=== PATIENT | male | born 1950 | race Caucasian/White ===

== ENCOUNTER 2023-03-10 12:42 | Outpatient (CLI) | payer MEDICARE, OTHER, SELFPAY ==
--- NOTE | ~2023-03-10 | US_ITS ---
EXAMINATION: US thyroid DATE: 03/10/2023 13:35 INDICATION: Goiter TECHNIQUE: Multiple ultrasound images of the thyroid were obtained. COMPARISON: None. FINDINGS: The right thyroid lobe measures 2.0 x 3.8 x 2.2 cm. The left thyroid lobe measures 1.6 x 4.8 x 2.4 c m. There is heterogeneous echogenicity throughout the thyroid gland, which decreases sensitivity of detection of thyroid nodules. No discrete nodules identified. Normal vascular flow is present. IMPRESSION: Heterogeneous thyroid echogenicity, as can be seen with Jim's thyroiditis and Graves' disease. Reviewed, dictated and finalized at location K. 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
== END 2023-03-10 12:43 | disposition home or self-care (01) ==
PROVIDERS: PCP Physician Assistant; Visit Provider Internal Medicine
DX: E04.9 Nontoxic goiter, unspecified (principal); Z86.39 Personal history of other endocrine, nutritional and metabolic disease
CPT/HCPCS: 76536

== ENCOUNTER 2024-11-26 14:51 | Outpatient (CLI) | payer MEDICARE, OTHER, SELFPAY ==
--- NOTE | ~2024-11-26 | DEXA_ITS ---
Bone Density Report Name: DENILSON TAVERAS Age: 74 Sex: Male Ethnicity: White Date of : 1950 Indication: screening for osteoporosis; height loss; cancer; Referring Provider: CRESCENCIO LOPEZ Study: Bone densitometry was performed. Exam Date: November 26, 2024 Accession number: [id number] Bone Density: Region BMD T-score Z-score Classification AP Spine(L1-L4) 1.281 1.7 2.8 Normal Femoral Neck (Left) 0.830 -0.7 0.6 Normal Total Hip (Left) 1.066 0.2 1.0 Normal Femoral Neck (Right) 0.867 -0.5 0.9 Normal Total Hip (Right) 1.019 -0.1 0.7 Normal Total Hip Mean 1.042 0.1 0.9 Normal World Health Organization criteria for BMD impression classify patients as: Normal (T-score at or above -1.0), Osteopenia (T-score between -1.0 and -2.5), or Osteoporosis (T-score at or below -2.5). 10-year Fracture Risk: FRAX not reported because: All T-scores for Spine Total, Hip Total, Femoral Neck at or above -1.0 Clinical Information Provided by Patient: Has used the following medications: Vitamin D Has the following medical conditions: Cancer Patient maximum height was 76 No regular weight bearing exercise Drinks caffeinated beverages Impression: The patient has normal bone mass. Discussion: BONE DENSITY IS ABOVE THE MINIMUM DESIRABLE LEVEL AT ALL SKELETAL SITES TESTED. This patient?s bone mineral density is above the minimum desirable level (T-score -1.0 or better) at all sites measured. The patient should follow a healthful lifestyle (good nutrition with adequate calcium and vitamin D, and appropriate weight-bearing exercise). Follow-Up: Consider repeating this study in 5 years or sooner if there is some new clinical indication. Reported by: OPAL on 11/27/2024 2:55:00 PM. Reviewed, dictated and finalized at location A.
--- OUTSIDE RECORDS SUMMARY | 2024-11-26 18:44 | XMS_ITS | Encounter Summary ---
Author Organization 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 Historical Provider Final Res ult documented in this encounter Visit Diagnoses Not on filedocumented in this encounter Care Teams Manufacturing Engineer Machining Relationship Specialty Start Date End Date Uyen Mcnulty PA [address] [place] [address] PCP - General Internal Medicine 07/04/18 Ag Rouse MD [address] [place] [address] Consulting Physician Urology 07/29/18 documented as of this encounter
--- OUTSIDE RECORDS SUMMARY | 2024-11-26 18:44 | XMS_ITS | Encounter Summary ---
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 Name Role Phone Unavailable Primary Care Provider Unavailtayo e Encounter Details Date Type Department Care Team (Late st Contact Info) Description 11/07/2022 Lab Requisition [facility] - Derm[facility] Lab [address] [facility] [place] [id number] Constantine Dove MD [address] [address] Social History Tobacco Use Types Packs/Day Years Used Date Smoking Tobacco: Never Assessed Sex and Gender Information Value Date Recorded Sex Assigned at Not on file Legal Sex Male 3:44 PM CDT Gender Identity Not on file Sexual Orientation Not on file documented as of this encounter Plan of Treatment Not on file documented as of this encounter Procedures Procedure Name Priority Date/Time Associated Diagnosis Comments DERMATOPATHOLOGY Routine 11/07/2022 12:0 0 AM CDT documented in this encounter Results * DERMATOPATHOLOGY (11/07/2022 12:00 AM CDT) Case Report Dermatopathology Report Case: [id number] Authorizing Provider: Constantine Dove MD Collected: 11/07/2022 12:00 AM Ordering Location: [facility] Received: 11/07/2022 04:45 PM Pathologist: Charu Morgan MD Specimen: Skin, left volar forearm 1:06 PM CDT DERMATOPATHOLOGY LABORATORY Final Diagnosis Specimen A. 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 The specimen consists of a shave biopsy measuring 9x7x1 mm. Jar 0. 1:06 PM CDT DERMATOPATHOLOGY LABORATORY Microscopic Description Specimen A. SKIN, left volar forearm: The epidermis shows parakeratosis, full thickness disorderly maturation of keratinocytes, mitoses at different levels, and dyskeratotic cells. 1:06 PM CDT DERMATOPATHOLOGY LABORATORY Disclaimer An external and internal positive and negative controls are appropriate for the histochemical, immunohistochemical and immunofluorescence stain(s) in this case (if any), except where stated explicitly. The performance characteristics of the stain(s) cited in this report were developed and its performance characteristic determined by the Dermatopathology Laboratory at [facility], directed by Dr. Cristian Santiago. These tests need not be, and therefore are not, approved by the [place] Food and Drug Administration. The tests are used for clinical purposes. Billing Codes Specimen Charges Stain Charges 35686 1 1:06 PM CDT DERMATOPATHOLOGY LABORATORY Embedded Images 1:06 PM CDT DERMATOPATHOLOGY LABORATORY Pathology/Cytolog y TISSUE SPECIMEN FROM SKIN / Unknown 11/07/2022 11/07/2022 4:45 PM CDT us Constantine Dove MD LAB - PATHOLOGY/CYTOLOGY ORDER NIK Final Result DERMATOPATHOLOGY LABORATORY [facility] - Department of Dermatology [address], [address] [phone] documented in this encounter Visit Diagnoses Not on filedocumented in this encounter
--- OUTSIDE RECORDS SUMMARY | 2024-11-26 18:44 | XMS_ITS | Clinical Summary ---
Author Organization [place] [id number] [facility] Address [address] [place] [address] Care Team Providers Care Demurrage Man Name Role Phone Uyen Mcnulty Primary Care Provider [phone] Ag Rouse MD Unavailable [phone] Allergies No known active allergies Medications metoprolol XL (TOPROL-XL) 25 mg 24 hr tablet 9 Active PRADAXA 150 mg capsule 9 Active ascorbic acid (VITAMIN C) 500 mg tablet,chewable Vitamin C 1 tab, OD, 1000 u Active cholecalciferol (VITAMIN D-3) 5,000 unit tablet 1 tablet (5,000 Units total) daily Active Multaq 400 mg tablet Take 2 tablets (800 mg total) by mouth daily 1 Active methIMAzole (TAPAZOLE) 5 mg tablet Take 0.5 tablets (2.5 mg total) by mouth daily 2 Active clotrimazole 1 % cream Apply topically 2 (two) times a day 45 g 1 4 Active triamcinolone (KENALOG) 0.1 % creamIndications:T inea cruris Apply to affected area 1-2 times daily as needed. 45 g 1 4 Active furosemide (LASIX) 20 mg tablet TAKE 1 TABLET DAILY 90 tablet 3 4 Active vibegron 75 mg tablet Take by mouth Active rosuvastatin (CRESTOR) 10 mg tabletIndications: Mixed hyperlipidemia TAKE 1 TABLET DAILY 90 tablet 3 5 Active Active Problems Problem Noted Date Diagnosed Date JOHNNY (obstructive sleep apnea) 10/03/2024 Benign prostatic hyperplasia with urinary freque ncy 10/03/2024 BMI 35.0-35.9,adult 09/26/2024 Assessment & Plan (09/26/2024 11:02 AM CDT): Discussed the patient's BMI. The BMI is above average. BMI management plan is completed. BMI Follow-up includes: nutrition counseling, exercise counseling and education provided. Obesity (BMI 30-39.9) 09/26/2024 Assessment & Plan (09/26/2024 11:02 AM CDT): Discussed the patient's BMI. The BMI is above average. BMI management plan is completed. BMI Follow-up includes: nutrition counseling, exercise counseling and education provided. Tinea cruris 02/20/2022 Assessment & Plan (03/27/2023 2:27 PM MULTIPLE DRILL OPERATOR): Continue Lamisil prn Assessment & Plan (02/20/2022 6:34 PM MULTIPLE DRILL OPERATOR): Rash is consistent with tinea. Encouraged to keep the area clean and dry. May apply Lotrimin to the area as needed. This will help it resolve and then may use the nystatin powder to keep the area dry. If he has persistent symptoms he is to follow-up for further evaluation. Hyperthyroidism 02/27/2021 Assessment & Plan (03/30/2024 9:24 PM MULTIPLE DRILL OPERATOR): Patient follows with Dr. Flaherty at [facility] with his hyperthyroidism. Continue methimazole 2.5 mg daily. He continues to monitor with ultrasounds annually Recommend checking DEXA based on his diagnosis of hyperthyroidism. Order provided Assessment & Plan (10/01/2023 12:53 AM CDT): Managed by [facility] endocrinology Dr. Flaherty He manages the methimazole at 2.5 mg Assessment & Plan (03/27/2023 2:26 PM MULTIPLE DRILL OPERATOR): Continue per endocrinology doctor in a dull [facility]. He decreased his methimazole to 2.5 mg and is continuing to follow labs. Ultrasound of the thyroid is pending Assessment & Plan (08/26/2022 3:56 PM CDT): Continue per Dr. Hogan. Continue methimazole 5 mg Assessment & Plan (02/20/2022 6:32 PM MULTIPLE DRILL OPERATOR): Hyperthyroid is managed by Dr. Hogan. He is currently on methimazole. She manages the dose Assessment & Plan (09/05/2021 8:51 PM CDT): Patient has hyper thyroidism. Continue per Dr. Hogan. Continue methimazole Assessment & Plan (02/27/2021 11:26 AM MULTIPLE DRILL OPERATOR): Patient continues has a suppressed TSH. Initially suspected it was secondary to amiodarone. However, on the TSH has remained suppressed. Will refer to endocrinology for further evaluation and management. He is currently on Maltaq. Tolerating well. Continue per Cardiology. Edema of left lower leg 12/10/2020 Assessment & Plan (12/10/2020 6:37 PM CDT): He will cut back on salt in diet He has not been taking his lasix - he will take 20mg of lasix daily x 5 days Will arrange for stat venous doppler of lle - he declines for it to be done today and wants to wait for son tomorrow Varicose veins of left lower extremity Assessment & Plan (12/10/2020 6:37 PM CDT): We discussed venous doppler of LLE. If negative, will advise compression socks. Hyperglycemia 02/23/2020 Assessment & Plan (03/30/2024 9:21 PM MULTIPLE DRILL OPERATOR): Pre-diabetes/hyperglycemia is a precursor to Dm. Stressed importance of working on diet (decrease your simple sugars and one carbohydrate with each meal) and increase you exercise to achieve weight loss and this will help prevent you from progressing to diabetes. Assessment & Plan (10/01/2023 12:59 AM CDT): Pre-diabetes/hyperglycemia is a precursor to Dm. Stressed importance of working on diet (decrease your simple sugars and one carbohydrate with each meal) and increase you exercise to achieve weight loss and this will help prevent you from progressing to diabetes. Assessment & Plan (09/05/2021 8:50 PM CDT): Pre-diabetes/hyperglycemia is a precursor to Dm. Stressed importance of working on diet (decrease your simple sugars and one carbohydrate with each meal) and increase you exercise to achieve weight loss and this will help prevent you from progressing to diabetes. Assessment & Plan (02/27/2021 11:24 AM MULTIPLE DRILL OPERATOR): Stressed importance of continued A1c control to minimize the intermediate manager effects of diabetes. Bring accuchecks to office when instructed to do so. Check A1c about every 3-6 months. Take medication as prescribed. Get annual eye exam. Encouraged ADRIANA/Statin if able to tolerate. Encouraged weight control and encouraged diabetic diet and exercise. Assessment & Plan (02/23/2020 6:27 PM MULTIPLE DRILL OPERATOR): Pre-diabetes/hyperglycemia is a precursor to Dm. Stressed importance of working on diet (decrease your simple sugars and one carbohydrate with each meal) and increase you exercise to achieve weight loss and this will help prevent you from progressing to diabetes. Essential hypertension 02/28/2018 Assessment & Plan (03/30/2024 9:21 PM MULTIPLE DRILL OPERATOR): Bp is stable/in acceptable range for any co-morbidities. Encouraged to limit sodium intake and exercise for weight control. Continue metoprolol XL 25 Lasix Assessment & Plan (10/01/2023 12:52 AM CDT): Bp is stable/in acceptable range for any co-morbidities. Encouraged to limit sodium intake and exercise for weight control. Managed by cardiology. Continue metoprolol Lasix and encouraged to take the Lasix daily Assessment & Plan (03/27/2023 2:26 PM MULTIPLE DRILL OPERATOR): Bp is stable/in acceptable range for any co-morbidities. Encouraged to limit sodium intake and exercise for weight control. Continue per Dr. Paz Cardiology. He manages his AFib and hypertension. Continue Multaq metoprolol Lasix and Pradaxa. Echo was done on 03/06 but I am unable to see these results. Patient states he was told if he did not hear they were fine but strongly encouraged him to call back and confirm that these are all okay. Assessment & Plan (08/26/2022 3:57 PM CDT): Bp is stable/in acceptable range for any co-morbidities. Encouraged to limit sodium intake and exercise for weight control. Continue per cardio Dr. Menchaca Continue metoprolol XL 25, Lasix 20 He is on Multaq Pradaxa and aspirin for his AFib Assessment & Plan (09/05/2021 8:50 PM CDT): Bp is stable/in acceptable range for any co-morbidities. Encouraged to limit sodium intake and exercise for weight control. Assessment & Plan (02/27/2021 11:24 AM MULTIPLE DRILL OPERATOR): Bp is stable/in acceptable range for any co-morbidities. Encouraged to limit sodium intake and exercise for weight control. Continue current regimen Cataract 02/27/2018 Family history of cardiac disorder 02/27/2018 Hypertrophic condition of skin 02/27/2018 Mitral valve regurgitation 02/27/2018 Rheumatic tricuspid valve regurgitation 02/27/19 19 Prostate cancer ([facility]) 11/10/2017 Overview (12/09/2020): Prostatectomy By Dr. Grove Managed by Dr. Rouse 09/2017. Dr. Rouse. s/p prostatectomy by Dr. Garza 12/2017 Assessment & Plan (03/30/2024 9:21 PM MULTIPLE DRILL OPERATOR): Status post prostatectomy by Dr. Galicia. Continues to follow very closely for monitoring. Assessment & Plan (08/26/2020 11:25 PM CDT): Ongoing close surveilance Continue per Dr. Garza and Padma Assessment & Plan (02/23/2020 6:26 PM MULTIPLE DRILL OPERATOR): Continue per Dr. Rouse. Close surveillance for the next few years. Assessment & Plan (08/14/2019 10:44 PM CDT): Close monitoring by Dr. Garza Assessment & Plan (01/19/2019 12:33 PM MULTIPLE DRILL OPERATOR): Continue per ONC and urology. Still under close observation/followup. Assessment & Plan (07/29/2018 10:01 PM CDT): Continue with Dr. Rouse Primary osteoarthritis involving multiple joints 01/23/2017 Assessment & Plan (02/23/2020 6:26 PM MULTIPLE DRILL OPERATOR): Continue tylenol prn Assessment & Plan (08/14/2019 3:23 PM CDT): NSAIDs otc prn Onychomycosis 07/11/2016 Paroxysmal atrial fibrillation 07/27/2015 Assessment & Plan (03/30/2024 9:20 PM MULTIPLE DRILL OPERATOR): Afib - Dr. thomson Multaq, metroprololXL 25, Lasix 20 and Pradaxa Not taking Lasix daily -- notes some swelling in the LE and sock lines. ECHO -- 03/06 in his office Assessment & Plan (10/01/2023 12:52 AM CDT): Managed by cardiology Dr. Bernal On Multaq and metoprolol Lasix and Pradaxa. Encouraged to take the Lasix daily as currently he is not he will alternate with edema that comes and goes Assessment & Plan (03/27/2023 2:26 PM MULTIPLE DRILL OPERATOR): Managed by Cardiology. He is on Multaq metoprolol and Pradaxa Assessment & Plan (08/26/2022 3:58 PM CDT): Bp is stable/in acceptable range for any co-morbidities. Encouraged to limit sodium intake and exercise for weight control. Continue per cardio Dr. Menchaca Continue metoprolol XL 25, Lasix 20 He is on Multaq Pradaxa and aspirin for his AFib Assessment & Plan (02/20/2022 6:31 PM MULTIPLE DRILL OPERATOR): Continue per Dr. Hall Patient is on metoprolol and Pradaxa Assessment & Plan (09/05/2021 8:50 PM CDT): Continue per Cardiology. Currently on Multaq metoprolol Lasix and Pradaxa Assessment & Plan (08/26/2020 11:21 PM CDT): Continue per cardio Assessment & Plan (02/23/2020 6:26 PM MULTIPLE DRILL OPERATOR): Continue per Cardio Assessment & Plan (08/14/2019 3:23 PM CDT): Continue per cardio Assessment & Plan (01/19/2019 12:32 PM MULTIPLE DRILL OPERATOR): Continue per cardio Assessment & Plan (07/29/2018 10:00 PM CDT): Stable. Continue with Cardio. On Pradaxa, Proafenone and metoprolol Mixed hyperlipidemia 07/27/2015 Assessment & Plan (03/30/2024 9:20 PM MULTIPLE DRILL OPERATOR): Encouraged patient to follow low fat/low chol diet like the Mediterranean diet. Increase good fats in the diet. Increase exercise. Monitor labs as needed. Continue Crestor 10 Assessment & Plan (10/01/2023 12:53 AM CDT): Encouraged patient to follow low fat/low chol diet like the Mediterranean diet. Increase good fats in the diet. Increase exercise. Monitor labs as needed. Continue Crestor 10 Assessment & Plan (03/27/2023 2:26 PM MULTIPLE DRILL OPERATOR): Encouraged patient to follow low fat/low chol diet like the Mediterranean diet. Increase good fats in the diet. Increase exercise. Monitor labs as needed. Continue Crestor 10 Assessment & Plan (08/26/2022 3:57 PM CDT): Encouraged patient to follow low fat/low chol diet like the Mediterranean diet. Increase good fats in the diet. Increase exercise. Monitor labs as needed. Continue Crestor Assessment & Plan (02/20/2022 6:32 PM MULTIPLE DRILL OPERATOR): Encouraged patient to follow low fat/low chol diet like the Mediterranean diet. Increase good fats in the diet. Increase exercise. Monitor labs as needed. Continue Crestor Assessment & Plan (09/05/2021 8:50 PM CDT): Encouraged patient to follow low fat/low chol diet like the Mediterranean diet. Increase good fats in the diet. Increase exercise. Monitor labs as needed. Continue Crestor Assessment & Plan (02/27/2021 11:24 AM MULTIPLE DRILL OPERATOR): Encouraged patient to follow fat/low chol diet like the Mediterranean diet. Increase good fats in the diet. Increase exercise. Monitor labs as needed. Continue Crestor Assessment & Plan (08/26/2020 11:24 PM CDT): Encouraged patient to follow fat/low chol diet like the Mediterranean diet. Increase good fats in the diet. Increase exercise. Monitor labs as needed. Continue statin Assessment & Plan (02/23/2020 6:26 PM MULTIPLE DRILL OPERATOR): Encouraged patient to follow fat/low chol diet like the Mediterranean diet. Increase good fats in the diet. Increase exercise. Monitor labs as needed. Continue statin Assessment & Plan (08/14/2019 3:24 PM CDT): Encouraged patient to continue low fat/low chol diet. Continue exercise. Increase good fats in the diet. Monitor labs as needed. Continue statin Assessment & Plan (01/19/2019 12:50 PM MULTIPLE DRILL OPERATOR): Continue statin Encouraged patient to continue low fat/low chol diet. Continue exercise. Increase good fats in the diet. Monitor labs as needed. Pt has noted some muscle aches and has read about statins. Discussed changing statin vs starting CoQ10 vs both. Will try both. Assessment & Plan (07/29/2018 10:01 PM CDT): Encouraged patient to continue low fat/low chol diet. Continue exercise. Increase good fats in the diet. Monitor labs as needed. LDL is still elevated with the Lipitor. Will monitor, may need to increase Resolved Problems Problem Noted Date Diagnosed Date Resolved Date Need for vaccination for Strep pneumoniae 03/30/2024 10/03/2024 Colon cancer screening 10/01/202303/30 Assessment & Plan (10/01/2023 1:01 AM CDT): Will consider. Last 1 was done in 2013. If he decides he wants it scheduled to be glad to set it Morbid obesity 08/26/2022 10/03/2024 Assessment & Plan (03/30/2024 9:22 PM MULTIPLE DRILL OPERATOR): Discussed the patient's BMI. The BMI is above average. BMI management plan is completed. BMI Follow-up includes: nutrition counseling, exercise counseling and education provided. Patient has an obesity-related condition (not limited to: hypertension, obstructive sleep apnea, osteoarthritis, hyperlipidemia, diabetes, etc.). Therefore, morbid obesity may be documented for patients with a BMI between 35.00-39.99. Assessment & Plan (10/01/2023 1:00 AM CDT): Discussed the patient's BMI. The BMI is above average. BMI management plan is completed. BMI Follow-up includes: nutrition counseling, exercise counseling and education provided. Patient has an obesity-related condition (not limited to: hypertension, obstructive sleep apnea, osteoarthritis, hyperlipidemia, diabetes, etc.). Therefore, morbid obesity may be documented for patients with a BMI between 35.00-39.99. Assessment & Plan (08/26/2022 3:58 PM CDT): Discussed the patient's BMI. The BMI is above average. BMI management plan is completed. BMI Follow-up includes: nutrition counseling, exercise counseling and education provided. Patient has an obesity-related condition (not limited to: hypertension, obstructive sleep apnea, osteoarthritis, hyperlipidemia, diabetes, etc.). Therefore, morbid obesity may be documented for patients with a BMI between 35.00-39.99. BMI 35.0-35.9,adult 08/26/2022 03/27/19 24 Assessment & Plan (08/26/2022 10:42 AM CDT): Discussed the patient's BMI. The BMI is above average. BMI management plan is completed. BMI Follow-up includes: nutrition counseling, exercise counseling and education provided. Numbness and tingling 08/26/20222023 Assessment & Plan (08/26/2022 4:00 PM CDT): Patient is noticing a little bit of numbness and tingling in the tips of his toes. Monofilamen has decreased sensation on the plantar side but top of the foot is still normal. Reviewed safety measures with numbness in to make sure he is wearing shoes. Will continue monitor closely. Check labs for metabolic reasons for the neuropathy. If symptoms persist can consider spinal reasons versus other etiology. Obesity (BMI 30-39.9) 08/27/20212022 Assessment & Plan (02/20/2022 6:32 PM MULTIPLE DRILL OPERATOR): Discussed the patient's BMI. The BMI is above average. BMI management plan is completed. BMI Follow-up includes: nutrition counseling, exercise counseling and education provided. Assessment & Plan (09/05/2021 8:52 PM CDT): Obesity is unchanged. Discussed the patient's BMI. The BMI is above average. BMI management plan is completed. BMI Follow-up includes: nutrition counseling, exercise counseling and education provided. Patient has an obesity-related condition (not limited to: hypertension, obstructive sleep apnea, osteoarthritis, hyperlipidemia, diabetes, etc.). Therefore, morbid obesity may be documented for patients with a BMI between 35.00-39.99. BMI 33.0-33.9,adult 08/27/2021 08/27/19 23 Assessment & Plan (02/20/2022 6:32 PM MULTIPLE DRILL OPERATOR): Discussed the patient's BMI. The BMI is above average. BMI management plan is completed. BMI Follow-up includes: nutrition counseling, exercise counseling and education provided. Assessment & Plan (08/27/2021 10:11 AM CDT): Obesity is unchanged. Discussed the patient's BMI. The BMI is above average. BMI management plan is completed. BMI Follow-up includes: nutrition counseling, exercise counseling and education provided. Other specified disorders of thyroid 02/27/2021 10/01/2023 Fatigue 02/27/2021 10/03/2024 Assessment & Plan (10/01/2023 12:59 AM CDT): Probably multifactorial. Check labs and followup to re-evaluate Assessment & Plan (08/26/2022 3:58 PM CDT): Probably multifactorial. Check labs and followup to re-evaluate Assessment & Plan (02/27/2021 11:26 AM MULTIPLE DRILL OPERATOR): Probably multifactorial. Check labs and followup to re-evaluate Leg cramps 02/27/2021 10/01/2023 Assessment & Plan (02/27/2021 11:27 AM MULTIPLE DRILL OPERATOR): Patient is noticing some leg cramps. Will check electrolytes magnesium and monitor closely Obesity (BMI 30-39.9) 02/26/20212021 Assessment & Plan (02/26/2021 9:16 AM MULTIPLE DRILL OPERATOR): Obesity is unchanged. Discussed the patient's BMI. The BMI is above average. BMI management plan is completed. BMI Follow-up includes: nutrition counseling, exercise counseling and education provided. BMI 34.0-34.9,adult 02/26/2021 08/28/19 Assessment & Plan (02/26/2021 9:17 AM MULTIPLE DRILL OPERATOR): Obesity is unchanged. Discussed the patient's BMI. The BMI is above average. BMI management plan is completed. BMI Follow-up includes: nutrition counseling, exercise counseling and education provided. BMI 36.0-36.9,adult 12/10/2020 10/04/19 Assessment & Plan (03/30/2024 9:22 PM MULTIPLE DRILL OPERATOR): Discussed the patient's BMI. The BMI is above average. BMI management plan is completed. BMI Follow-up includes: nutrition counseling, exercise counseling and education provided. Assessment & Plan (12/10/2020 6:37 PM CDT): Encouraged heart healthy diet, cutting back on salt in snacks Medicare annual wellness visit, subsequent 08/26/2020 03/30/2024 Assessment & Plan (10/01/2023 12:53 AM CDT): Encouraged healthy lifestyle, good nutrition and exercise. Encouraged Calcium and Vitamin D and weight bearing exercise for bone health. Reviewed immunizations. Reviewed age appropirate screenings. Medicare Wellness Documentation is completed within the chart Assessment & Plan (08/26/2022 3:56 PM CDT): Encouraged healthy lifestyle, good nutrition and exercise. Encouraged Calcium and Vitamin D and weight bearing exercise for bone health. Reviewed immunizations. Reviewed age appropirate screenings. Medicare Wellness Documentation is completed within the chart Assessment & Plan (09/05/2021 8:50 PM CDT): Encouraged healthy lifestyle, good nutrition and exercise. Encouraged Calcium and Vitamin D and weight bearing exercise for bone health. Reviewed immunizations. Reviewed age appropirate screenings. Medicare Wellness Documentation is completed within the chart Assessment & Plan (08/26/2020 11:26 PM CDT): Encouraged healthy lifestyle, good nutrition and exercise. Encouraged Calcium and Vitamin D and weight bearing exercise for bone health. Reviewed immunizations. Reviewed age appropirate screenings. Medicare Wellness Documentation is completed within the chart Abnormal TSH 08/26/2020 10/01/2023 Overview (09/17/2020): 08/2019 - Normal US - suppressed TSH. Probably secondary to amiodarone. Cardio instructed to hold and he will manage/change Assessment & Plan (08/26/2020 11:27 PM CDT): This is a significant, separately identifiable problem that was evaluated and managed on the same day as the wellness exam TSH is suppressed. It never has been abnormal. Thyroid exam is normal Will recheck labs TSH, T3 and FT4. If normal, will monitor. If abnormal, may start with US vs referral to endo TSH elevation 08/26/2020 08/26/2020 Other fatigue 02/23/2020 10/01/2023 Assessment & Plan (10/01/2023 12:59 AM CDT): Probably multifactorial. Check labs and followup to re-evaluate Assessment & Plan (08/26/2020 11:26 PM CDT): Probably multifactorial. Check labs and followup to re-evaluate Assessment & Plan (02/23/2020 6:27 PM MULTIPLE DRILL OPERATOR): Probably multifactorial. Check labs and followup to re-evaluate BMI 34.0-34.9,adult 02/21/2020 08/21/19 Assessment & Plan (02/21/2020 9:05 AM MULTIPLE DRILL OPERATOR): Obesity is unchanged. Discussed the patient's BMI. The BMI is above average. BMI management plan is completed. BMI Follow-up includes: nutrition counseling, exercise counseling and education provided. BMI 35.0-35.9,adult 02/21/2020 03/30/19 Assessment & Plan (03/22/2024 10:18 AM MULTIPLE DRILL OPERATOR): Discussed the patient's BMI. The BMI is above average. BMI management plan is completed. BMI Follow-up includes: nutrition counseling, exercise counseling and education provided. Assessment & Plan (10/01/2023 12:53 AM CDT): Discussed the patient's BMI. The BMI is above average. BMI management plan is completed. BMI Follow-up includes: nutrition counseling, exercise counseling and education provided. Assessment & Plan (08/20/2020 10:43 AM CDT): Obesity is unchanged. Discussed the patient's BMI. The BMI is above average. BMI management plan is completed. BMI Follow-up includes: nutrition counseling, exercise counseling and education provided. Assessment & Plan (02/21/2020 9:05 AM MULTIPLE DRILL OPERATOR): Obesity is unchanged. Discussed the patient's BMI. The BMI is above average. BMI management plan is completed. BMI Follow-up includes: nutrition counseling, exercise counseling and education provided. Medicare annual wellness visit, subsequent 08/14/2019 02/15/2020 Assessment & Plan (08/14/2019 3:26 PM CDT): Encouraged healthy lifestyle, good nutrition and exercise. Encouraged Calcium and Vitamin D and weight bearing exercise for bone health. Reviewed immunizations. Reviewed age appropirate screenings. Medicare Wellness Documentation is completed within the chart Influenza vaccine refused 01/19/2019 Assessment & Plan (02/23/2020 6:27 PM MULTIPLE DRILL OPERATOR): Encouraged vaccine. Reviewed risks/ benefits. Patient refuses and accepts risks. Assessment & Plan (01/19/2019 12:41 PM MULTIPLE DRILL OPERATOR): Out of supply--- Will consider at pharmacy Ankle edema 08/29/2018 10/01/2023 Medicare annual wellness visit, subsequent 07/29/2018 01/19/2019 Assessment & Plan (07/29/2018 10:01 PM CDT): Encouraged healthy lifestyle, good nutrition and exercise. Encouraged Calcium and Vitamin D and weight bearing exercise for bone health. Reviewed immunizations Reviewed age appropirate screenings. BMI 34.0-34.9,adult 07/29/2018 10/01/19 Assessment & Plan (03/27/2023 2:27 PM MULTIPLE DRILL OPERATOR): Discussed the patient's BMI. The BMI is above average. BMI management plan is completed. BMI Follow-up includes: nutrition counseling, exercise counseling and education provided. Assessment & Plan (08/14/2019 3:56 PM CDT): Obesity is unchanged. Discussed the patient's BMI. The BMI is above average. BMI management plan is completed. BMI Follow-up includes: nutrition counseling, exercise counseling and education provided. Assessment & Plan (01/19/2019 12:38 PM MULTIPLE DRILL OPERATOR): Obesity is unchanged. Discussed the patient's BMI. The BMI is above average. BMI management plan is completed. BMI Follow-up includes: nutrition counseling, exercise counseling and education provided. Obesity (BMI 30-39.9) 07/29/20182023 Assessment & Plan (03/27/2023 2:27 PM MULTIPLE DRILL OPERATOR): Discussed the patient's BMI. The BMI is above average. BMI management plan is completed. BMI Follow-up includes: nutrition counseling, exercise counseling and education provided. Assessment & Plan (12/10/2020 1:22 PM CDT): Obesity is unchanged. Discussed the patient's BMI. The BMI is above average. BMI management plan is completed. BMI Follow-up includes: nutrition counseling, exercise counseling and education provided. Assessment & Plan (08/20/2020 10:43 AM CDT): Obesity is unchanged. Discussed the patient's BMI. The BMI is above average. BMI management plan is completed. BMI Follow-up includes: nutrition counseling, exercise counseling and education provided. Assessment & Plan (08/14/2019 3:56 PM CDT): Obesity is unchanged. Discussed the patient's BMI. The BMI is above average. BMI management plan is completed. BMI Follow-up includes: nutrition counseling, exercise counseling and education provided. Assessment & Plan (01/19/2019 12:33 PM MULTIPLE DRILL OPERATOR): Obesity is unchanged. Discussed the patient's BMI. The BMI is above average. BMI management plan is completed. BMI Follow-up includes: nutrition counseling, exercise counseling and education provided. Tinnitus of both ears 07/12/20182023 Low back pain 03/04/2018 10/03/2024 Cardiomegaly 02/27/2018 10/01/2023 Tinea corporis 02/27/2018 10/01/2023 Encounters Date Type Department Care Team Description 09/26/2024 11:00 AM CDT Office Visit [facility] [address] [address] Uyen Mcnulty PA Medicare annual wellness visit, subsequent (Primary Dx); Paroxysmal atrial fibrillation (HCC); BMI 35.0-35.9,adult; Obesity (BMI 30-39.9); Essential hypertension; Mixed hyperlipidemia; JOHNNY (obstructive sleep apnea); Benign prostatic hyperplasia with urinary frequency; Hyperthyroidism from Last 3 Months Immunizations Immunization Administration Dates Next Due Influenza, Unspecified 02/07/2024(Deferr ed: Patient Refused),02/06/2023(Deferred: Patient Refused),02/11/2022(Deferred: Patient Refused),03/09/2021(Deferred: Patient Refused),11/07/2019(Deferred: Patient Refused),11/06/2018(Deferred: Patient Refused),01/06/2018(Deferred: Patient Refused) Pneumococcal Conjugate PCV 13 01/18/2016 Pneumococcal Conjugate Pcv20 03/22/2024 Pneumococcal Polysaccharide PPV23 01/23/2017 Surgical History Surgery Date Site/Laterality Comments PROSTATE SURGERY Family History Medical History Relation Name Comments Arthritis Father Arthritis Mother Relation Name Status Comments Father Mother Alive Social History Tobacco Use Types Packs/Day Years Used Date Smoking Tobacco: Never Passive Smoke Exposure: Never Smokeless Tobacco: Never Tobacco Cessation:Counseling Given: Not Answered Alcohol Use Standard Drinks/Week Comments Yes 2 (1 standard drink = 0.6 oz pur e alcohol) Occasionally PHQ-2 Answer Date Recorded PHQ-2 Total Score (If total score is 3 or more points, staff should administer the PHQ-9) 0 09/26/2024 AUDIT-C Answer Date Recorded Q1: How often do you have a drink containing alc ohol? 2-3 times a week 09/26/2024 Q2: How many drinks containi ng alcohol do you have on a typical day when you are drinking? 1 or 2 09/26/2024 Q3: How often do you have si x or more drinks on one occasion? 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 OPERATOR Gender Identity Not on file Sexual Orientation Not on file Occupation Industry Job Start Date Job End Date Retired Not on file Not on file Not on file Obstetrics History Last Filed Vital Signs Vital Sign Reading Time Taken Comments Blood Pressure 120/80 09/26/2024 10:56 AM CDT Pulse 79 09/26/2024 10:56 AM CDT Temperature 37.1 C (98.7 F) 09/26/2024 10:56 AM CDT Respiratory Rate 19 12/10/2020 1:21 PM CDT Oxygen Saturation 97% 09/26/2024 10:56 AM CDT Inhaled Oxygen Concentration - - Weight 127 kg (280 lb) 09/26/2024 10:56 AM CDT Height 189.2 cm (6' 2.5) 09/26/2024 10:56 AM CD T Body Mass Index 35.47 09/26/2024 10:56 AM CDT Plan of Treatment Health Maintenance Due Date Last Done Comments Hepatitis C Screening 1950 DTaP/Tdap/Td Vaccine (1 - Tdap) 1960 Hepatitis B Screening 11/01/1967 Zoster Vaccine (1 of 2) 11/01/1999 Influenza Vaccine (#1) 2024 Depression Screening 09/26/2025 09/26/2024, 03/22/2024, 09/20/2023, Additional history exists Fall Risk Assessment 09/26/2025 09/26/2024, 03/22/2024, 09/20/2023, Additional history exists Well Visit 65+ 09/26/2025 09/26/2024, 09/06, 08/26/2022, Additional history exists Colon Cancer Screening-DNA Stool 09/24/2026 09/25/19 24, 09/11/2013 Colon Cancer Screening-CT Colonography Discontinued 09/11/2013 Colon Cancer Screening-Colonoscopy Discontinued 09/11/2013 Colon Cancer Screening-Sigmoidoscopy Discontinued 09/11/2013 Prostate Cancer Screening-PSA Discontinued 07/17/2017 Colon Cancer Screening-FIT Discontinued 09/25/2023, Pneumococcal vaccine 65+ Completed 025, 01/23/2017, 01/18/2016 Procedures Procedure Name Priority Date/Time Associated Diagnosis Comments STOOL DNA COLOGUARD Routine 09/25/2023 7:00 AM CDT Colon cancer screening PSA, TOTAL Routine 07/17/2017 10:58 AM CDT COLONOSCOPY Routine 09/11/2013 from Last 3 Months or Most Recently Relevant to Health Maintenance Results * Stool DNA - Cologuard (09/25/2023 7:00 AM CDT) Pathologist [facility] Stool DNA - Cologuard Negative Negative [employer] (CLIA #:[id number]) Comment: NEGATIVE TEST RESULT. A negative Cologuard result indicates a low likelihood that a colorectal cancer (CRC) or advanced adenoma (adenomatous polyps with more advanced pre-malignant features) is present. The chance that a person with a negative Cologuard test has a colorectal cancer is less than 1 in 1500 (negative predictive value >99.9%) or has an advanced adenoma is less than 5.3% (negative predictive value 94.7%). These data are based on a prospective cross-sectional study of 10,000 individuals at average risk for colorectal cancer who were screened with both Cologuard and colonoscopy. (Lilia T. et al, N Engl J Med 2014;370(14):9915-9646) The normal value (reference range) for this assay is negative. COLOGUARD RE-SCREENING RECOMMENDATION: Periodic colorectal cancer screening is an important part of preventive healthcare for asymptomatic individuals at average risk for colorectal cancer. Following a negative Cologuard result, the [place] [employer] Society and U.S. Multi-Society Task Force screening guidelines recommend a Cologuard re-screening interval of 3 years. References: [place] [employer] Guideline for Colorectal Cancer Screening: https://www.cancer.org/cancer/eimzk-bqueak-lvceft/zklwshvja-tfpctpoep-soerlfl/ac s-rec ommendations.html.; Joseph HELMS, Arina LAURA, Jacquie APPLE, Colorectal Cancer Screening: Recommendations for Physicians and Patients from the U.S. Multi-Society Task Force on Colorectal Cancer Screening , Am J Gastroenterology 2017; 112:1019-5476. TEST DESCRIPTION: Composite algorithmic analysis of stool DNA-biomarkers with hemoglobin immunoassay. Quantitative values of individual biomarkers are not reportable and are not associated with individual biomarker result reference ranges. Cologuard is intended for colorectal cancer screening of adults of either sex, 45 years or older, who are at average-risk for colorectal cancer (CRC). Cologuard has been approved for use by the U.S. FDA. The performance of Cologuard was established in a cross sectional study of average-risk adults aged 50-84. Cologuard performance in patients ages 45 to 49 years was estimated by sub-group analysis of near-age groups. Colonoscopies performed for a positive result may find as the most clinically significant lesion: colorectal cancer [4.0%], advanced adenoma (including sessile serrated polyps greater than or equal to 1cm diameter) [20%] or non- advanced adenoma [31%]; or no colorectal neoplasia [45%]. These estimates are derived from a prospective cross-sectional screening study of 10,000 individuals at average risk for colorectal cancer who were screened with both Cologuard and colonoscopy. (Lilia Head. et al, N Engl J Med 2014;370(14):3064-1098.) Cologuard may produce a false negative or false positive result (no colorectal cancer or precancerous polyp present at colonoscopy follow up). A negative Cologuard test result does not guarantee the absence of CRC or advanced adenoma (pre-cancer). The current Cologuard screening interval is every 3 years. ([place] [employer] and U.S. Multi-Society Task Force). Cologuard performance data in a 10,000 patient pivotal study using colonoscopy as the reference method can be accessed at the following location: www.[employer]/results. Additional description of the Cologuard test process, warnings and precautions can be found at www.[employer].com. Stool 09/25/2023 7:00 AM CDT 09/26/2023 1:33 PM CDT Uyen SNELL LAB BODY FLUIDS AND STOOLS ORDERABLES Final Result [employer] (CLIA #:[id number]) [place] [address] * (ABNORMAL) PSA, total (07/17/2017 10:58 AM CDT) PSA, TOTAL 4.2(H) < OR = 4.0 ng/mL [facility] HISTORICAL RESULTS Comment: The total PSA value from this assay system is standardized against the WHO standard. The test result will be approximately 20% lower when compared to the equimolar-standardized total PSA (Amy Marcus). Comparison of serial PSA results should be interpreted with this fact in mind. This test was performed using the Siemens chemiluminescent method. Values obtained from different assay methods cannot be used interchangeably. PSA levels, regardless of value, should not be interpreted as absolute evidence of the presence or absence of disease. 07/17/2017 10:5 8 AM CDT 07/18/2017 7:15 AM CDT Narrative [facility] HISTORICAL RESULTS - 07/18/2017 7:00 AM CDT 0; 0; 0 FASTING:YES FASTING: YES PERFORMING LAB: [facility], [facility] [address], [place] [address] Marek Neff D.O., MPH Historical Provider LAB BLOOD ORDERABLES Taniya l Result [facility] HISTORICAL RESULTS * Colonoscopy (09/11/2013) Anatomical Region Laterality Modality Other Narrative 09/11/2013 Dr. Ring. Normal ---->10 years Historical Provider ENDOSCOPY PROCEDURES Taniya l Result from Last 3 Months or Most Recently Relevant to Health Maintenance Insurance MEDICARE FOR LIFE MEDICARE FOR LIFE MEDICARE FOR LIFE Advance Directives For more information, please contact: [phone] Documents on File Type Date Recorded Patient Station Agent Expl anation ADVANCE DIRECTIVE 11/29/2017 12:00 AM [facility] MARRIAGE COUNSELOR FINANCIAL/MEDICAL Care Teams Demurrage Man Relationship Specialty Start Date End Date Uyen Mcnulty PA [address] [place] [address] PCP - General Internal Medicine 07/04/18 Ag Rouse MD [address] [place] [address] Consulting Physician Urology 07/29/18
--- OUTSIDE RECORDS SUMMARY | 2024-11-26 18:44 | XMS_ITS | Encounter Summary ---
Author Organization [facility] Address [address] [place] [address] Care Team Providers Care Customer Sales Representative Name Role Phone Unavailable Primary Care Provider Unavailabl e Encounter Details Date Type Department Care Team (Late st Contact Info) Description 01/19/2023 Lab Requisition [facility] - DermPath Lab [address], [facility] [place] [id number] Constantine Dove MD [address] [place] [place] [address] Social History Tobacco Use Types Packs/Day Years [...] Priority Date/Time Associated Diagnosis Comments DERMATOPATHOLOGY Routine 01/18/2023 12:0 0 AM HOURLY SHIFT MANAGER documented in this encounter Results * DERMATOPATHOLOGY (01/18/2023 12:00 AM HOURLY SHIFT MANAGER) Case Report Dermatopathology Report Case: [id number] Authorizing Provider: Constantine Dove MD Collected: 01/18/2023 12:00 AM Ordering Location: [facility] DermPath Lab Received: 01/20/2023 06:24 AM Pathologist: Janel Grider MD Specimen: Skin, left volar forearm 12:52 PM HOURLY SHIFT MANAGER DERMATOPATHOLOGY LABORATORY Final Diagnosis Specimen A. 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 Check Margin and Prior Biopsy Path# [id number] 3 12:52 PM [facility] DERMATOPATHOLOGY LABORATORY Gross Description Specimen A: Received is one formalin filled container labeled with the patient's name and designated left volar forearm. The specimen consists of a non-oriented ellipse of skin measuring 70l88w0 mm.The margin is inked green. The 12 o'clock and 6 o'clock tips are submitted in cassette 1. The remainder of the ellipse is serially sectioned and submitted in cassette 2 - 3. Jar 0. 3 12:52 PM [facility] DERMATOPATHOLOGY LABORATORY Microscopic Description Specimen A. SKIN, left volar forearm: The epidermis shows parakeratosis, full thickness disorderly maturation of keratinocytes, mitoses at different levels, and dyskeratotic cells. This lesion is not present at the margin of the specimen. There are fibroblasts and collagen bundles oriented parallel to the skin surface with elongated blood vessels, some of which are oriented perpendicular to the skin surface. 3 12:52 PM [facility] DERMATOPATHOLOGY LABORATORY Disclaimer An external and internal positive and negative controls are appropriate for the histochemical, immunohistochemical and immunofluorescence stain(s) in this case (if any), except where stated explicitly. The performance characteristics of the stain(s) cited in this report were developed and its performance characteristic determined by the Dermatopathology Laboratory at [facility], directed by Dr. Cristian Santiago. These tests need not be, and therefore are not, approved by the [place] Food and Drug Administration. The tests are used for clinical purposes. Billing Codes Specimen Charges Stain Charges 96093 1 3 12:52 PM [facility] DERMATOPATHOLOGY LABORATORY Embedded Images 3 12:52 PM [facility] DERMATOPATHOLOGY LABORATORY Pathology/Cytolog y TISSUE SPECIMEN FROM SKIN / Unknown 01/18/2023 01/20/2023 6:24 AM HOURLY SHIFT MANAGER us Constantine Dove MD LAB - PATHOLOGY/CYTOLOGY ORDER NIK Final Result DERMATOPATHOLOGY LABORATORY [facility] - Department of Dermatology [address] [phone] documented in this encounter Visit Diagnoses Not on filedocumented in this encounter
--- OUTSIDE RECORDS SUMMARY | 2024-11-26 18:44 | XMS_ITS | Encounter Summary ---
Author Organization [facility] Care Team Providers Care Labor Custodian Name Role Phone Uyen Mcnulty Primary Care Provider + [phone] Ag Rouse MD Unavailable [phone] Encounter Details Date Type Department Care Team (Latest Contact Info) Description 02/18/2016 Orders Only [facility] CLINCONV Provider, MD Misty [address] [place] [id number] Social History Tobacco Use Types Packs/Day Years Used Date Smoking Tobacco: Never Assessed Sex and Gender Information Value Date Recorded Sex Assigned at Not on file Legal Sex Male 11:45 AM SCREEN PRINTING INSPECTOR Gender Identity Not on file Sexual Orientation Not on file documented as of this encounter Plan of Treatment Not on file documented as of this encounter Procedures Procedure Name Priority Date/Time Associated Diagnosis Comments PROCEDURE - RESULT 02/18/2016 12 :00 AM SCREEN PRINTING INSPECTOR documented in this encounter Results * PROCEDURE - RESULT (02/18/2016 12:00 AM SCREEN PRINTING INSPECTOR) Narrative 02/18/2016 12:00 AM SCREEN PRINTING INSPECTOR Ordered by an unspecified provider. Historical Provider Final Res ult documented in this encounter Visit Diagnoses Not on filedocumented in this encounter Care Teams Labor Custodian Relationship Specialty Start Date End Date Uyen Mcnulty PA [address] [place] [address] PCP - General Internal Medicine 07/04/18 Ag Rouse MD [address] [place] [address] Consulting Physician Urology 07/29/18 documented as of this encounter
--- OUTSIDE RECORDS SUMMARY | 2024-11-26 18:44 | XMS_ITS | Encounter Summary ---
Author Organization [facility] Care Team Providers Care Lining Closer Name Role Phone Uyen Mcnulty Primary Care Provider + [phone] Ag Rouse MD Unavailable [phone] Encounter Details Date Type Department Care Team (Latest Contact Info) Description 09/11/2013 Orders Only [facility] CLINCONV Provider, MD Misty [address] [place] [address] Social History Tobacco Use Types Packs/Day Years Used Date Smoking Tobacco: Never Assessed Sex and Gender Information Value Date Recorded Sex Assigned at Not on file Legal Sex Male 11:45 AM DAM ATTENDANT Gender Identity Not on file Sexual Orientation Not on file documented as of this encounter Plan of Treatment Not on file documented as of this encounter Procedures Procedure Name Priority Date/Time Associated Diagnosis Comments COLONOSCOPY - SCAN 09/11/2013 12 :00 AM CDT documented in this encounter Results * COLONOSCOPY - SCAN (09/11/2013 12:00 AM CDT) Narrative 09/11/2013 12:00 AM CDT Ordered by an unspecified provider. Historical Provider Final Res ult documented in this encounter Visit Diagnoses Not on filedocumented in this encounter Care Teams Lining Closer Relationship Specialty Start Date End Date Uyen Mcnulty PA [address] [place] [address] PCP - General Internal Medicine 07/04/18 Ag Rouse MD [address] [place] [address] Consulting Physician Urology 07/29/18 documented as of this encounter
--- OUTSIDE RECORDS SUMMARY | 2024-11-26 18:44 | XMS_ITS | Clinical Summary ---
Author Organization [facility] Address [address] [place] [address] Care Team Providers Care Vision Therapist Name Role Phone Unavailable Primary Care Provider Unavailabl e Source Comments [facility],non-owned Affiliates and Associated Physician Practices is amultiple site organization consisting of ambulatory clinics and hospital sitesin [place], [place], [place] and [place]. This disclosure is being madepursuant to the Care Everywhere program and may not contain all information available regarding this patient. Last updated 17.[facility] Social History Tobacco Use Types Packs/Day Years Used Date Smoking Tobacco: Never Assessed Sex and Gender Information Value Date Recorded Sex Assigned at Not on file Legal Sex Male 3:44 PM CDT Gender Identity Not on file Sexual Orientation Not on file Plan of Treatment Health Maintenance Due Date Last Done Comments COLOGUARD (AGES 45-75) - COL ON CA SCREENING 1950 COLON MONITORING 1950 COLONOSCOPY - COLON CA SCREENING 1949 CT COLONOGRAPHY - COLON CA SCREENING 1950 Colorectal Cancer Screening 1950 FIT - COLON CA SCREENING 1949 FLEX SIG - COLON CA SCREENING 1949 LIPID TESTING 1950 MEDICARE AWV 12 MONTHS 1950 HEPATITIS C SCREENING 10/27/1967 DTAP/TDAP/TD VACCINES (1 - Tdap) 1968 PNEUMOCOCCAL VACCINE 50+ (1 of 1 - PCV) 11/01/1999 ZOSTER VACCINE (1 of 2) 11/01/1999 DEPRESSION SCREENING 02/07/2024 COVID-19 VACCINE (1 - 2023-2 5 season) 2024 INFLUENZA VACCINE (#1) 2024 Respiratory Syncytial Virus (RSV) Vaccine Pt: or over 60 yrs (1 - 1-dose 75+ series) 2024 HEPATITIS B VACCINE Aged Out No longe r eligible based on patient's age to complete this topic HIB VACCINE Aged Out No longer eligi ble based on patient's age to complete this topic HPV VACCINE Aged Out No longer eligi ble based on patient's age to complete this topic MENINGOCOCCAL (Group B) VACC INE SHARED DECISION-MAKING Aged Out No longer eligibl e based on patient's age to complete this topic MENINGOCOCCAL GROUPS A/C/Y/W VACCINE Aged Out No longer eligible b ased on patient's age to complete this topic Insurance MEDICARE [facility]
--- OUTSIDE RECORDS SUMMARY | 2024-11-26 18:44 | XMS_ITS | Clinical Summary ---
Author Organization [facility] Address [address] [place] [address] Care Team Providers Care Knowledge Analyst Name Role Phone Unavailable Primary Care Provider Unavailabl e Social History Tobacco Use Types Packs/Day Years Used Date Smoking Tobacco: Never Assessed Sex and Gender Information Value Date Recorded Sex Assigned at Not on file Legal Sex Male 8:08 PM CDT Gender Identity Not on file Sexual Orientation Not on file Plan of Treatment Health Maintenance Due Date Last Done Comments Colorectal Cancer Screening Colonoscopy (10 Years) 1950 Hepatitis C 11/01/1967 DTaP, Tdap and Td Vaccines ( 1 - Tdap) 1968 Pneumococcal Vaccine: 50+ Ye ars (1 of 1 - PCV) 11/01/1999 Zoster Vaccines (1 of 2) 11/01/1999 COVID-19 Vaccine (1 - 2023-2 5 season) 2024 RSV Immunization or 60+ Years (1 - 1-dose 75+ series) 2024 Influenza Adult (#1) 2024 Hepatitis A Vaccines Aged Out No long er eligible based on patient's age to complete this topic Meningococcal B Vaccine Aged Out No l onger eligible based on patient's age to complete this topic Meningococcal Vaccine Aged Out No kathy vinh eligible based on patient's age to complete this topic RSV Immunizations Under 20 Months Aged Out No longer eligible based on patient's age to complete this topic
--- OUTSIDE RECORDS SUMMARY | 2024-11-26 18:44 | XMS_ITS | Data Portability ---
Author Organization [place] - [facility] OFFICE Address [address] [place] [address] Care Team Providers Care Water Resources Technical Officer Name Role Phone CHARITY MCNULTY Primary Care Provider Assessment Encounter Date Assessment Date Assessment LastModified by Organization Details LastModified Time 01/16/2023 01/16/2023 Patient Examined by TALON Mayen, Also Documentation reviewed and approved by supervising physician brody Not available 01/16/2023 14:44:35 Plan of Treatment Reminders Order Date Submit Date Provider Last Modified By Organization Details Last Modified Time Details Appointments ESTABLISH ED PATIENT DETAILED 2024 02:15P M Owen Ayala i, MD Not available Not available Not available Lab None recorded. Referral None recorded. Procedures None recorded. Surgeries None recorded. Imaging None recorded. Medication Orders Pradaxa 150 mg capsule 2023 024 [employer] [facility], [address] [place] [address], [id number], 01/27/2024 12:35:46 Patient TargetsNo targets recorded. Patient Instructions Encounter Date Encounter Id Patient Instructions Last Modified By Organization Details Last Modified Time 06/08/2022 [id number] Weight loss 20 pounds Exercise advised Low cholesterol diet advised Low sodium diet advised. lisa Not available 06/08/2022 14:44:34 01/16/2023 [id number] Exercise advised Low cholesterol diet advised Low sodium diet advised. brody Not available 01/16/2023 14:50:33 01/27/2024 [id number] Weight loss 20 pounds Exercise advised Low cholesterol diet advised Low sodium diet advised. [email or web address] Not available 01/27/2024 12:35:42 Reason for Referral None Reported. Results Created Date Observation Date Name Description Value Unit Range Abnormal Flag Note LastModifiedBy Organization Detail LastModifiedTime 06/11/1905/14/2022 elect rocar diogr am No observ ation record ed. [email or web address] Not Available 2022 11:03:38 01/20/20 23 01/16/2023 elect rocar diogr am No observ ation record ed. [email or web address] Not Available 13:57:28 01/24/20 23 12/05/2022 US, carlos a x, hepat ic vein No observ ation record ed. [email or web address] Not Available 2022 11:54:43 02/06/20 23 02/03/2023 , echoc ardio gram No observ ation record ed. [facility] [address] [place], [place], [address], 02/08/2023 12:24:46 07/12/19 24 07/11/2023 elect rocar diogr am No observ ation record ed. [email or web address] Not Available 2023 13:57:15 01/29/20 24 01/27/2024 [facility] rocar diogr am No observ ation record ed. [email or web address] Not Available 2024 09:27:04 07/25/19 25 07/23/2024 elect rocar diogr am No observ ation record ed. [email or web address] Not Available 2024 13:16:44 09/06/19 25 08/20/2024 , echoc ardio gram No observ ation record ed. [email or web address] Not Available 2024 12:47:23 Result Notes None recorded. Problems Name Problem SNOMED Code Status Onset Date Resolution Date Notes Provider Name and Address Organization Details Recorded Time Tinea corporis 80429786 Active 2018 TIA Chávez [facility] 9 01:40:32 Obesity 823489708 Active 2018 TIA Chávez [facility] 9 01:40:40 Mixed hyperlipide mana 074108294 Completed 201802/28/2018 Coleen Acaciaalaina [place], [place] - [facility] 9 13:22:13 Rheumatic tricuspid valve regurgitati on 23659557 Active 2018 Coleen Olguin [place], [place] - [facility] 9 01:41:03 Mitral valve regurgitati on 82306871 Active 2018 Coleen [place], [place] - [facility] 9 01:41:16 Paroxysmal atrial fibrillatio n 648182580 Active 2018 Coleen Olgu[place] - [facility] 9 01:41:27 Cardiomegal y 7208614 Active 2018 Coleen [place] [facility] 9 01:41:36 Hypertrophi c condition of skin 93133138 Active 2018 Horne Acaciaalaina [place] [facility] 9 01:41:50 Family history of cardiac disorder 510405829 Active 2018 Coleen Acaciaalaina [place] [facility] 9 01:42:05 Prehyperten darell 552248549 Completed 201802/28/2018 Lela [place], [place] - [facility] 9 13:52:56 Cataract 292006990 Active 2018 Coleen [place], [place] - [facility] 9 01:42:28 Essential hypertensio n 07588385 Active 2018 Lela [place] - [facility] 9 13:53:05 Hyperlipide [facility] 20166224 Active 2018 Lela [place], [place] - [facility] 9 13:53:28 Low back pain 759093451 Active 2018 Tamar [place], [place] - [facility] 9 12:40:13 Ankle edema 20463881 Active 2018 Owen Ayala i, MD [address] [place], [address], [place] - [facility] 9 15:12:38 Problem Notes None recorded. Procedures Surgical History Date Name Laterality Status Provider Name and Address Organization Details Recorded Time Cholecystectomy completed Coleen Olguin I [place] - [facility] 02/27/2018 01:42:53 Imaging Results None recorded. Procedure Notes None recorded. Medical Equipment None Reported. Allergies No known drug allergies Medications Name Sig Start Date Stop Date Status Note LastModified by Organization Details LastModified Time propafeno ne 150 mg tablet TAKE 1 TABLET FOUR TIMES A DAY 10/16 completed Pt not taking - 0 oya Not Available Not Available Not Available atorvasta tin 20 mg tablet 1 tab OD 02/13 completed Not Available Not Available Not Available amiodaron e 200 mg tablet TAKE 1 TABLET DAILY 10/08 completed Pt is no more on this medicati on Not Available Not Available Not Available sulfameth oxazole 800 mg-trimet hoprim 160 mg tablet 02/28 completed Not Available Not Available Not Available triamcino lone acetonide 0.1 % topical cream Apply as needed by topical route for 23 days. active Not Available Not Available No t Available terbinafi ne HCl 250 mg tablet 01/26 completed Not Available Not Available Not Available Vitamin C 1,000 mg tablet Take 1 tablet every day by oral route. active Not Available Not Available No t Available hydrocodo ne 7.5 mg-acetam inophen 325 mg tablet 02/28 completed Not Available Not Available Not Available clotrimaz ole-betam ethasone 1 %-0.05 % topical cream 02/28 completed Not Available Not Available Not Available methimazo le 5 mg tablet Take 1 tablet every day by oral route. active m-f 1/2 tab, s-s 1 tab Not Available Not Available Not Available furosemid e 20 mg tablet Take 1 tablet every day by oral route. active Not Available Not Available No t Available metoprolo l succinate ER 25 mg tablet,ex tended release 24 hr TAKE 1 TABLET DAILY 2024 active Not Available Not Available Not Avai lable nystatin 100,000 unit/gram topical powder as needed 07/23 completed Not Available Not Available Not Available methimazo le 10 mg tablet 5mg every other day 06/08 completed Not Available Not Available Not Available clotrimaz ole 1 % topical cream APPLY TO THE AFFECTED AND SURROUND ING AREAS OF SKIN BY TOPICAL ROUTE 2 TIMES PER DAY IN THE MORNING AND EVENING active Not Available Not Available No t Available rosuvasta tin 10 mg tablet Take 1 tablet every day by oral route. active Not Available Not Available No t Available vitamin B12 0.5 mg-folic acid 1 mg tablet Take 2 tablets every day by oral route. active Not Available Not Available No t Available Vitamin C 1 tab, OD, 1000 u 05/18 completed Not Available Not Available Not Available aspirin 81 mg. 1 tab, OD 01/16 completed CHEWABLE Not Available Not Available Not Available diclofena c 1 % topical gel 02/28 completed Not Available Not Available Not Available Vitamin D-3 with Aloe 120 mg-1,000 unit-10 mg tablet Take 1 tablet every day by oral route. 01/13 completed Not Available Not Available Not Available Multaq 400 mg tablet TAKE 1 TABLET TWICE A DAY 2024 active Not Available Not Available Not Avai lable Vitamin D3 125 mcg (5,000 unit) tablet Take 1 tablet every day by oral route in the morning. active Not Available Not Available No t Available Pradaxa 150 mg capsule 1 Tab BID active Not Available Not Available No t Available Adult Aspirin Regimen 81 mg tablet,de layed release Take 1 tablet every day by oral route. 01/16 completed Not Available Not Available Not Available Gemtesa 75 mg tablet Take 1 tablet every day by oral route. active Not Available Not Available No t Available Vitals Date Recorded Body height Body mass index (BMI) Body weight Heart rate Oxygen saturation Oxygen saturation in Arterial blood by Pulse oximetry Systolic And Diastolic Provider Name and Address Organization Details Last Updated DateTime 3 190.5 cm 35.8 kg/m2 114392. 5 g 94 /min 98 % 98 % 130/90 mm[Hg] Becky Hussein [facility] 3 14:32:31 Date Recorded Body height Body mass index (BMI) Body weight Heart rate Oxygen saturation Oxygen saturation in Arterial blood by Pulse oximetry Systolic And Diastolic Provider Name and Address Organization Details Last Updated DateTime 4 190.5 cm 35.4 kg/m2 696211. 28 g 77 /min 95 % 95 % 126/82 mm[Hg] Karen Varghese [facility] 4 17:34:40 Date Recorded Body height Body mass index (BMI) Body weight Heart rate Oxygen saturation Oxygen saturation in Arterial blood by Pulse oximetry Systolic And Diastolic Provider Name and Address Organization Details Last Updated DateTime 5 190.5 cm 35.1 kg/m2 329831. 66 g 63 /min 95 % 95 % 102/78 mm[Hg] Ledy Shi [facility] 5 15:21:50 Date Recorded Body height Body mass index (BMI) Body weight Heart rate Respiratory rate Oxygen saturation Oxygen saturation in Arterial blood by Pulse oximetry Systolic And Diastolic Provider Name and Address Organization Details Last Updated DateTime 3 190.5 cm 35.1 kg/m2 587878. 46 g 88 /min 16 /min 99 % 99 % 142/82 mm[Hg] Valentin Ta [facility] 3 14:31:22 Date Recorded Body height Body mass index (BMI) Body weight Heart rate Oxygen saturation Oxygen saturation in Arterial blood by Pulse oximetry Systolic And Diastolic Provider Name and Address Organization Details Last Updated DateTime 4 190.5 cm 35 kg/m2 183351. 86 g 82 /min 98 % 98 % 102/68 mm[Hg] Marlyn Ramez [facility] 4 12:22:28 Social History Question Answer Notes LastModified by Anygma Details LastModified Time Tobacco Smoking Status Never Smoker Not [facility]2019 03:30:42 Which Illicit Or Recreational Drugs Have You Used? Bowen [id number] Information not available 12/10/2019 What Was The Date Of Your Most Recent Tobacco Screening? 03/30/2018 [id number] Information not available 12/10/2019 How Much Tobacco Do You Smoke? No [id number] Information not available 12/10/2019 How Many Years Have You Smoked Tobacco? 0 [id number] Information not available 12/10/2019 Sex: Unknown Functional Status Question Answer Note LastModified by Anygma Details LastModified Time What is your level of alcohol consumption? None [id number] Information not available 12/10/2019 Do you or have you ever used smokeless tobacco? Never used smokeless tobacco [id number] Information not available 12/10/2019 Do you or have you ever used e-cigarettes or vape? Never used electronic cigarettes [id number] Information not available 12/10/2019 Mental Status None recorded. Family History Relationship Description Onset Age of this Age Resolved Age Notes LastModified by Organization Details LastModified Time Father Carcinoma of prostate [email or web address] Not available 2018 01:44:43 Mother Atrial arrhythmia [email or web address] Not available 02/27 01:44:50 Notes:Brother(s): Hepatitis C Medical History Condition Response Valvular Heart Disease Y Hyperlipidemia Y Atrial Fibrillation Y Hypertension Y Past Encounters Encounter ID Performer Location Encounter Start Date Encounter Closed Date Diagnosis/Indication Diagnosis SNOMED-CT Code Diagnosis ICD10 Code Diagnosis IMO Codes Diagnosis Note [id number] MD Rojas Patel e Office [address] [place] [address] 02/28/2018 15:26:45 02/28/2018 16:15:09 Paroxysmal atrial fibrillation 352372320 I48.0 Dyspnea on exertion 6084 5006 R06.09 Treadmill Myoview Stress test, has high [place] Risk score. Has Known CAD, or CAD risk equivalent . To look for any ischemia. Dyslipidemia 562404198 E 78.5 Needs to keep LDL less than 70, and HDL more than 40Will [place] [id number] Owen Weeks MD [place] OFFICE [address] [place] [address] 03/30/2018 12:56:33 04/03/2018 03:30:00 Paroxysmal atrial fibrillation 446749367 I48.0 now on Toprol Dyspnea on exertion 6084 5006 R06.09 Treadmill Myoview Stress test, with ant fixed defectadd Adrielll arrange for cardiac CTA. He has high [place] Risk score. He/she would benefit from CT to look for any coronary artery disease. Dyslipidemia 481337497 E 78.5 Needs to keep LDL less than 70, and HDL more than 40Will get fating [place] [id number] MD Rojas Patel e Office [address] [place] [address] 08/29/2018 14:16:25 08/29/2018 15:31:55 Paroxysmal atrial fibrillation 837935955 I48.0 on toprol and pradaxa Dyspnea on exertion 6084 5006 R06.09 03/15/18 TDM-Positi ve stress test. 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 Moderate LV dysfunctio n. Dyslipidemia 344175808 E 78.5 Needs to keep LDL less than 70, and HDL more than 40 Will get fasting lipids for follow up from his PCP Dr. Mcnulty last LDL 69 on 09/16/2017 Essential hypertension 56351216 I10 well controlled . HR fast. will increase metoprolol to BID Ankle edema 58697594 R60 .0 occasional ankle swelling to LLE. 03/15/18 TDM-Positi ve stress test. 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 Moderate LV dysfunctio n. Refuses to have CTA done. [id number] MD Rojas Patel Office [address] [place] [address] 10/24/2018 13:42:49 10/24/2018 14:35:54 Paroxysmal atrial fibrillation 451657447 I48.0 on toprol, Propafenon e, and pradaxa Ankle edema 69026670 R60 .0 Improved leg edema. 03/15/18 TDM-Positi ve stress test. 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 Moderate LV dysfunctio n.He is asymptomat ic nowRefuses to have CTA in the past. Dyspnea on exertion 6084 5006 R06.09 improved symptoms 03/15/18 TDM-Positi ve stress test. 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 Moderate LV dysfunctio n. Dyslipidemia 970517647 E 78.5 Needs to keep LDL less than 70, and HDL more than 40 Will get fasting lipids for follow up from his PCP Dr. Mcnulty last LDL 69 on 09/16/2017 Essential hypertension 74728522 I10 well controlled . HR 91 .on metoprolol . [id number] MD Rojas Patel Office [address] [place] [address] 02/13/2019 13:37:29 02/13/2019 14:22:18 Paroxysmal atrial fibrillation 564413497 I48.0 Now chronic A Fibrate well controlled on toprol, Propafenon eContinue pradaxa Ankle edema 75939930 R60 .0 Improved leg edema.On Lasix as needed 03/15/18 TDM-Positi ve stress test. 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 Moderate LV dysfunctio n.He is asymptomat ic nowRefuses to have CTA in the past. Dyspnea on exertion 6084 5006 R06.09 improved symptoms 03/15/18 TDM-Positi ve stress test. 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 Moderate LV dysfunctio n. Dyslipidemia 664322167 E 78.5 Needs to keep LDL less than 70, and HDL more than 40 Will get fasting lipids for follow up from his PCP Dr. Mcnulty last LDL 69 on 09/16/2017 Essential hypertension 63970517 I10 well controlled . [id number] MD Rojas Patel Office [address] [place] [address] 07/18/2019 12:14:11 07/18/2019 13:11:53 Paroxysmal atrial fibrillation 994613300 I48.0 Now chronic A Fib. Rate is not well controlled today, 104. Home HR averages 80s. Hesitate to increase Metoprolol with BP 110/76. Continue pradaxa, dc propafenon e, will try on Amio Ankle edema 91360348 R60 .0 Improved leg edema.Cont inue Lasix, low salt diet and leg elevation. Dyspnea on exertion 6084 5006 R06.09 improved symptoms 03/15/18 TDM-Positi ve stress test. 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 Moderate LV dysfunctio n. Will arrange for cardiac CTA, he has high [place] Risk score. he would benefit from CT to look for any Coronary Artery Disease Dyslipidemia 430413341 E 78.5 Needs to keep LDL less than 70, and HDL more than : TC 133 ,TG 149 , HDL 41, LDL 69Continue Rosuvastat in. Essential hypertension 90760954 I10 well controlled . Sleep michelle kareem disturbance 77104956 G47.9 Will order sleep study [id number] MD Rojas Patel e Office [address] [place] [address] 10/17/2019 12:14:14 10/17/2019 13:00:53 Paroxysmal atrial fibrillation 770194607 I48.0 in afib 10/17/2019, asymptomat ic. on Pradaxa Rate controlled with metoprolol and amiodarone Ankle edema 99381399 R60 .0 Stable, improved.C ontinue Lasix, low salt diet, and leg elevation. Dyspnea on exertion 6084 5006 R06.09 Resolved Cardiac CTA 07/29/2019: Normal LV function EF 44%. Sub-optima l study to do to underlying afib. LM short vessel, no disease. LAD 25-40% calcified lesion in mid segment. LCX no significan t disease. RCA less than 25% calcified lesion. Dyslipidemia 776170019 E 78.5 Needs to keep LDL less than 70, and HDL more than 40.09/17/19 18 LDL 69Continue rosuvastat in 10mgWill get fasting lipids for follow-up Essential hypertension 55780636 I10 Well controlled Sleep michelle kareem disturbance 25784363 G47.9 SLEEP STUDY 08/21/2019: Findings are consistent with mild, positional obstructiv e sleep apnea. Indication s of cardiac dysrhythmi a are recorded. [id number] MD Rojas Patel Office [address] [place] [address] 04/09/2020 11:49:07 04/09/2020 12:20:02 Paroxysmal atrial fibrillation 913814041 I48.0 in AFib 04/09/2020 Remains asymptomat ic [id number] Sc score = 2 on Pradaxa Rate controlled with metoprolol and amiodarone Ankle edema 35522290 R60 .0 Stable, improved with Lasix.Cont inue low salt diet and leg elevation Dyspnea on exertion 6084 5006 R06.09 Obtain echo to evaluate for structural /functiona l disease Cardiac CTA 07/29/2019 : Normal LV function EF 44%. Sub-optima l study to do to underlying afib. LM short vessel, no disease. LAD 25-40% calcified lesion in mid segment. LCX no significan t disease. RCA less than 25% calcified lesion. Dyslipidemia 414365608 E 78.5 Needs to keep LDL less than 70, and HDL more than 40.09/17/19 18 LDL 69Continue rosuvastat in 10mgWill get fasting lipids for follow-up Essential hypertension 17511736 I10 Well controlled on current regimen Sleep michelle kareem disturbance 71364213 G47.9 Sleep study 08/21/2019 : Findings are consistent with mild, positional obstructiv e sleep apnea. Indication s of cardiac dysrhythmi a are recorded.N o indication for CPAP at this time [id number] MD Rojas Patel e Office [address] [place] [address] 10/08/2020 12:18:12 10/08/2020 14:02:30 Paroxysmal atrial fibrillation 924449320 I48.0 in AFib 04/09/2020 Remains asymptomat ic [id number] Sc score = 2 on Pradaxa Off amiodarone will try on Multaq Ankle edema 63645977 R60 .0 Stable, improved with Lasix.Cont inue low salt diet and leg elevation Dyspnea on exertion 6084 5006 R06.09 Obtain echo to evaluate for structural /functiona l disease Cardiac CTA 07/29/2019 : Normal LV function EF 44%. Sub-optima l study to do to underlying afib. LM short vessel, no disease. LAD 25-40% calcified lesion in mid segment. LCX no significan t disease. RCA less than 25% calcified lesion. Dyslipidemia 401420998 E 78.5 Needs to keep LDL less than 70, and HDL more than 40.09/17/19 18 LDL 69Continue rosuvastat in 10mgWill get fasting lipids for follow-up Essential hypertension 36757913 I10 Well controlled on current regimen Sleep michelle kareem disturbance 52312517 G47.9 Sleep study 08/21/2019 : Findings are consistent with mild, positional obstructiv e sleep apnea. Indication s of cardiac dysrhythmi a are recorded.N o indication for CPAP at this time [id number] MD Rojas Patel e Office [address] [place] [address] 04/07/2021 13:54:26 04/07/2021 14:26:34 Paroxysmal atrial fibrillation 516653587 I48.0 in AFib 04/07/2021 Remains asymptomat ic [id number] Sc score = 2 on Pradaxa Off amiodarone , now on MultaqEven t monitor, labs from Ankle edema 39105301 R60 .0 Stable, improved with Lasix.Cont inue low salt diet and leg elevation Dyspnea on exertion 6084 5006 R06.09 Obtain echo to evaluate for structural /functiona l disease Cardiac CTA 07/29/2019 : Normal LV function EF 44%. Sub-optima l study to do to underlying afib. LM short vessel, no disease. LAD 25-40% calcified lesion in mid segment. LCX no significan t disease. RCA less than 25% calcified lesion. Dyslipidemia 519336697 E 78.5 Needs to keep LDL less than 70, and HDL more than 40.09/17/19 18 LDL 69Continue rosuvastat in 10mgWill get fasting lipids for follow-up Essential hypertension 38646203 I10 Well controlled on current regimen Sleep michelle kareem disturbance 10679985 G47.9 Sleep study 08/21/2019 : Findings are consistent with mild, positional obstructiv e sleep apnea. Indication s of cardiac dysrhythmi a are recorded.N o indication for CPAP at this time [id number] MD Rojas Patel Office [address] [place] [address] 06/09/2021 14:55:30 06/09/2021 15:47:55 Paroxysmal atrial fibrillation 963350810 I48.0 in AFib 04/07/2021 Remains asymptomat ic [id number] Sc score = 2 on Pradaxa Off amiodarone , now on MultaqEven t monitor, labs from Ankle edema 26604617 R60 .0 Stable, improved with Lasix.Cont inue low salt diet and leg elevation Dyspnea on exertion 6084 5006 R06.09 Obtain echo to evaluate for structural /functiona l disease Cardiac CTA 07/29/2019 : Normal LV function EF 44%. Sub-optima l study to do to underlying afib. LM short vessel, no disease. LAD 25-40% calcified lesion in mid segment. LCX no significan t disease. RCA less than 25% calcified lesion. Dyslipidemia 377196057 E 78.5 Needs to keep LDL less than 70, and HDL more than 40.09/17/19 18 LDL 69Continue rosuvastat in 10mgWill get fasting lipids for follow-up Essential hypertension 36933827 I10 Well controlled on current regimen Sleep michelle kareem disturbance 47983374 G47.9 Sleep study 08/21/2019 : Findings are consistent with mild, positional obstructiv e sleep apnea. Indication s of cardiac dysrhythmi a are recorded.N o indication for CPAP at this time [id number] Owen Weeks MD [facility] Office [address] [place] [address] 12/01/2021 14:31:57 12/01/2021 15:15:07 Paroxysmal atrial fibrillation 407832436 I48.0 in AFib 04/07/2021 Remains asymptomat ic [id number] Sc score = 2 on Pradaxa Off amiodarone , now on Multaq Ankle edema 10558200 R60 .0 Stable, improved with Lasix.Cont inue low salt diet and leg elevation Dyspnea on exertion 6084 5006 R06.09 Obtain echo to evaluate for structural /functiona l disease Cardiac CTA 07/29/2019 : Normal LV function EF 44%. Sub-optima l study to do to underlying afib. LM short vessel, no disease. LAD 25-40% calcified lesion in mid segment. LCX no significan t disease. RCA less than 25% calcified lesion. Dyslipidemia 448134447 E 78.5 Needs to keep LDL less than 70, and HDL more than 40.09/17/19 18 LDL 69Continue rosuvastat in 10mgWill get fasting lipids for follow-up Essential hypertension 49922434 I10 Well controlled on current regimen Sleep michelle kareem disturbance 66057874 G47.9 Sleep study 08/21/2019 : Findings are consistent with mild, positional obstructiv e sleep apnea. Indication s of cardiac dysrhythmi a are recorded.N o indication for CPAP at this time [id number] Owen Weeks MD [place] OFF[facility] [address] [place] [address] 06/08/2022 14:04:36 06/08/2022 14:51:00 Paroxysmal atrial fibrillation 740787222 I48.0 in AFib 04/07/2021 Remains asymptomat ic [id number] Sc score = 2 on Pradaxa Off amiodarone , now on Multaq Ankle edema 12016381 R60 .0 Stable, improved with Lasix.Cont inue low salt diet and leg elevation Dyspnea on exertion 6084 5006 R06.09 Obtain echo to evaluate for structural /functiona l disease Cardiac CTA 07/29/2019 : Normal LV function EF 44%. Sub-optima l study to do to underlying afib. LM short vessel, no disease. LAD 25-40% calcified lesion in mid segment. LCX no significan t disease. RCA less than 25% calcified lesion. Dyslipidemia [id number] E 78.5 Needs to keep LDL less than 70, and HDL more than 40.09/17/19 18 LDL 69Continue rosuvastat in 10mgWill get fasting lipids for follow-up Essential hypertension 88789406 I10 Well controlled on current regimen Sleep michelle kareem disturbance 10276865 G47.9 Sleep study 08/21/2019 : Findings are consistent with mild, positional obstructiv e sleep apnea. Indication s of cardiac dysrhythmi a are recorded.N o indication for CPAP at this time [id number] Owen Weeks MD [facility] [address] [place] [address] 01/16/2023 14:06:47 01/16/2023 14:56:49 Paroxysmal atrial fibrillation [id number] I48.0 in AFib 04/07/2021 Remains asymptomat ic [id number] Sc score = 2 on Pradaxa Off amiodarone , now on Multaq Ankle edema [id number] R60 .0 Stable, improved with Lasix.Cont inue low salt diet and leg elevation Dyspnea on exertion 6084 5006 R06.09 Obtain echo to evaluate for structural /functiona l disease Cardiac CTA 07/29/2019 : Normal LV function EF 44%. Sub-optima l study to do to underlying afib. LM short vessel, no disease. LAD 25-40% calcified lesion in mid segment. LCX no significan t disease. RCA less than 25% calcified lesion. Dyslipidemia 262739238 E 78.5 Needs to keep LDL less than 70, and HDL more than 40.*Last LDL was 42 done on 01/2022.Pt takes rosuvastat in 10 mg. Continue rosuvastat in 10mgWill get fasting lipids for follow-up Essential hypertension 60701482 I10 Blood pressure is elevated today, but this is only one reading, will keep close follow up, and consider medication change if blood pressure is still elevated next visit. Sleep michelle kareem disturbance 42912532 G47.9 Sleep study 08/21/2019 : Findings are consistent with mild, positional obstructiv e sleep apnea. Indication s of cardiac dysrhythmi a are recorded.N o indication for CPAP at this time Atypical chest pain 1025 21693 R07.89 stable Obtain echo to evaluate for structural /functiona l disease. [id number] Owen Weeks MD [facility] [address] [place] [address] 07/11/2023 17:11:22 07/11/2023 18:09:15 Paroxysmal atrial fibrillation [id number] I48.0 in AFib 04/07/2021 Remains asymptomat ic [id number] Sc score = 2 on Pradaxa Off amiodarone , now on Multaq Ankle edema 56171499 R60 .0 Stable, improved with Lasix.Cont inue low salt diet and leg elevation Dyspnea on exertion 6084 5006 R06.09 ECHO 02/03/23:A trail fibrillati on is present,LV chamber size is normal.the LVEF 55-60,main tolic function is indetermin ate due to atrial fibrillati on,left atrium chamber is mildly dilated, the aortic is mildly calcified, there is mild tricuspid regurgitat ion,mild elevation of estimated RV systolic pressure,t here is mild pulmonic regurgitat ion,atrial fibrillati on. Cardiac CTA 07/29/2019 : Normal LV function EF 44%. Sub-optima l study to do to underlying afib. LM short vessel, no disease. LAD 25-40% calcified lesion in mid segment. LCX no significan t disease. RCA less than 25% calcified lesion. Dyslipidemia 165525686 E 78.5 Needs to keep LDL less than 70, and HDL more than 40.*Last LDL was 42 done on 01/2022.Pt takes rosuvastat in 10 mg. Continue rosuvastat in 10mgWill get fasting lipids for follow-up Essential hypertension 68920378 I10 Now well controlled Sleep michelle kareem disturbance 82124518 G47.9 Sleep study 08/21/2019 : Findings are consistent with mild, positional obstructiv e sleep apnea. Indication s of cardiac dysrhythmi a are recorded.N o indication for CPAP at this time [id number] Owen Weeks MD [facility] [address] [place] [address] 01/27/2024 11:52:51 01/27/2024 12:44:46 Paroxysmal atrial fibrillation [id number] I48.0 in AFib 04/07/2021 Remains asymptomat ic [id number] Sc score = 2 on Pradaxa Off amiodarone , now on Multaq Ankle edema 93205034 R60 .0 Stable, improved with Lasix.Cont inue low salt diet and leg elevation Dyspnea on exertion 6084 5006 R06.09 ECHO 02/03/23:A trail fibrillati on is present,LV chamber size is normal.the LVEF 55-60,main tolic function is indetermin ate due to atrial fibrillati on,left atrium chamber is mildly dilated, the aortic is mildly calcified, there is mild tricuspid regurgitat ion,mild elevation of estimated RV systolic pressure,t here is mild pulmonic regurgitat ion,atrial fibrillati on. Cardiac CTA 07/29/2019 : Normal LV function EF 44%. Sub-optima l study to do to underlying afib. LM short vessel, no disease. LAD 25-40% calcified lesion in mid segment. LCX no significan t disease. RCA less than 25% calcified lesion. Dyslipidemia 883338981 E 78.5 Needs to keep LDL less than 70, and HDL more than 40.*Last LDL was 42 done on 01/2022.Pt takes rosuvastat in 10 mg. Continue rosuvastat in 10mgWill get fasting lipids for follow-up Essential hypertension 70283107 I10 Now well controlled Sleep michelle kareem disturbance 03522102 G47.9 Sleep study 08/21/2019 : Findings are consistent with mild, positional obstructiv e sleep apnea. Indication s of cardiac dysrhythmi a are recorded.N o indication for CPAP at this time Atrial fibrillation 4943 6004 I48.91 [id number] Owen Weeks MD [facility] [address] [place] [address] 07/23/2024 14:49:17 07/23/2024 16:06:48 Paroxysmal atrial fibrillation [id number] I48.0 in AFib 04/07/2021 Remains asymptomat ic [id number] Sc score = 2 on PradaxaObt ain echo to evaluate for structural /functiona l disease. Ankle edema 38843861 R60 .0 Stable, improved with Lasix.Cont inue low salt diet and leg elevationO btain echo to evaluate for structural /functiona l disease. Dyslipidemia 427319621 E 78.5 Needs to keep LDL less than 70, and HDL more than 40.*Last LDL was 42 done on 01/2022.Pt takes rosuvastat in 10 mg. Continue rosuvastat in 10mgWill get fasting lipids for follow-up Essential hypertension 05405656 I10 Now well controlled Sleep michelle kareem disturbance 03392159 G47.9 Sleep study 08/21/2019 : Findings are consistent with mild, positional obstructiv e sleep apnea. Indication s of cardiac dysrhythmi a are recorded.N o indication for CPAP at this time Atrial fibrillation 4943 6004 I48.91 Health Concerns Section Related Observation LastModified by Organization Detai ls LastModified Time None Recorded Concern Status LastModified by Organization Details LastModified Time None Recorded Advance Directives Directive None Recorded Payers Insurance Date Sequence Insurance Name Policy Number Policy Post Covered Member ID Post Member ID Guarantor Name 08/17/2024 1 [place] Allan Cali [id number] Allan Cali 08/17/2024 2 FOR LIFE ( - MEDICARE SUPPLEMENT) Allan Cali [id number] Allan Cali Notes Date Note Type Note Provider Name and Address Organization Details Recorded Time 06/09/19 23 text/htm l 06/07/22CC : Cardiac follow up, dyspnea on [id number] man with h/o paroxysmal atrial fibrillation, hypertension, hyperlipidemia, and prostate cancer presents today for 6 month follow-up. He was last seen in the clinic on 12/01/21, since then he is doing well, he gained 23 poundsHe denies ER visits and hospitalizations since he was last seen. Denies chest pain.Denies shortness of breath at rest. Has mild dyspnea on exertion.No orthopnea. No PNDs.Denies heart palpitations.Denies dizziness. Denies syncope or near syncope.No ankle or leg edema.No major bleeding events.No reported side effects from medications. Taking medications as prescribed with no missed doses.Denies snoring, daytime somnolence and AM headache.*Last LDL 25 done on 03/02/21 .Pt takes rosuvastatin 10 mg. Previously:He is active at home with Exercise bikeHe was on Amiodarone, was stopped due to hypothyroid *Had ECHO done in 05/12/20 showed Atrial fibrillation,LV chamber is mildly dilated,LV wall thickness is normal,the estimated LVEF is 50-55%(normal),diastolic function is indeterminate due to atrial fibrillation,left atrium chamber is mildly dilated,the aortic valve is mildly calcified,there is mild tricuspid regurgitation,mild elevation of estimated RV systolic pressure,the estimated RV systolic pressure is 45 mm Hg,the IVC is dilated and collapses >50% with inspiration (RAR 10 mmHg) *Had positive stress test 03/2018, had CTA 07/29/19 which showed Normal LV function EF 44%. Sub-optimal study to do to underlying afib. LM short vessel, no disease. LAD 25-40% calcified lesion in mid segment. LCX no significant disease. RCA less than 25% calcified lesion. Results from this visit, or from the past:07/18/19:Na 142,K 4.0,Cl 105,CO2 27,GLU 98,BUN 15,Cr 0.95.09/16/17: Na 142, K 4.4 ,CL 105 ,CO2 27, GLU 98, BUN 11 , CR 0.85,09/16/17: TC 133 ,TG 149 , HDL 41, LDL 69,07/18/17: Glu 96, Na 142, K 4.4, Cr 0.85, AST 19, ALT 22, TC 133, HDL 41, LDL 69, PSA 4.2 EKG 903): AFIB (96 bpm), NSS04/09/20-Arrthmia of unclear originsEKG 10/17/2019: Probably ATRIAL XCRGYBPRVAZQ62/11/2020 EKG :Atrial premature beats Low voltage in chest leadsEKG,\02/13/19, A-fib mu02/13/2019: EKG : Probably atrial fibrillation Probably old inferior myocardial infarctionelectrocardiogram 10-24-2018 A-fIB03/15/18 TDM-Positive stress test. 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 Moderate LV dysfunction.EKG, 08/29/18: Prob A-Fib.EK02/28/18: A-Fib with RVRECHO 05/12/20:Atrial fibrillation,LV chamber is mildly dialted,LV wall thickness is normal,the estimated LVEF is 50-55%(normal),diastolic function is indeterminate due to atrial fibrillation,left atrium chamber is mildly dialted,the aortic valve is mildly calcified,there is mild tricuspid regurgitation,mild elevation of estimated RV systolic pressure,the estimated RV systolic pressure is 45 mmHg,the IVC is dialted and collapses >50% with inspiration (RAR 10 mmHg)mthere is no pericardial effusion present,atrial fibrillation.08/21/19 SLEEP STUDY: 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 Indications of cardiac dysrhythmia are recorded.07/29/2019 CTA: Normal LV function EF 44%. Sub-optimal study to do to underlying afib. LM short vessel, no disease. LAD 25-40% calcified lesion in mid segment. LCX no significant disease. RCA less than 25% calcified myyywo56/07/19 TDM-Positive stress test. 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 Moderate LV dysfunction.Had nuclear stress testing on 03/17/11. Imaging had shown a 10-15% false negative rate and a small (5-10%) false positive rate. EKG portion was negative.bilateral venous doppler 03/16/11: negative for DVT.ECHO 09/16/15: normal LV size and function. EF > 70%. Trace MR. Trace ARCC: Palpitations Owen Weeks MD [address] [place], [address], [facility] 06/08/2022 14:45:14 01/17/20 23 text/htm l 01/16/23CC : Cardiac follow up dyspnea on [id number] man with h/o paroxysmal atrial fibrillation, hypertension, hyperlipidemia, and prostate cancer presents today for 6 month follow-up. He was last seen in the clinic on 06/08/22, since then he is doing well. He reporting occasional chest pain that last few seconds. *Last LDL was 42 done on 01/2022.Pt takes rosuvastatin 10 mg. He denies ER visits and hospitalizations since he was last seen. Today reports:Denies chest pain.Denies shortness of breath at rest. Has mild dyspnea on exertion.No orthopnea. No PNDs.Denies heart palpitations.Denies dizziness. Denies syncope or near syncope.yes ankle or leg edema. as neededNo major bleeding events.No reported side effects from medications. Taking medications as prescribed with no missed doses.yes snoring, daytime somnolence and AM headache.*Last LDL was 42 done on 01/2022.Pt takes rosuvastatin 10 mg. Previously:He is active at home with Exercise bike He was on Amiodarone, was stopped due to hypothyroid *Had ECHO done in 05/12/20 showed Atrial fibrillation,LV chamber is mildly dilated,LV wall thickness is normal,the estimated LVEF is 50-55%(normal),diastolic function is indeterminate due to atrial fibrillation,left atrium chamber is mildly dilated,the aortic valve is mildly calcified,there is mild tricuspid regurgitation,mild elevation of estimated RV systolic pressure,the estimated RV systolic pressure is 45 mm Hg,the IVC is dilated and collapses >50% with inspiration (RAR 10 mmHg) *Had positive stress test 03/2018, had CTA 07/29/19 which showed Normal LV function EF 44%. Sub-optimal study to do to underlying afib. LM short vessel, no disease. LAD 25-40% calcified lesion in mid segment. LCX no significant disease. RCA less than 25% calcified lesion. Results from this visit, or from the past:07/18/19:Na 142,K 4.0,Cl 105,CO2 27,GLU 98,BUN 15,Cr 0.95.09/16/17: Na 142, K 4.4 ,CL 105 ,CO2 27, GLU 98, BUN 11 , CR 0.85,09/16/17: TC 133 ,TG 149 , HDL 41, LDL 69,07/18/17: Glu 96, Na 142, K 4.4, Cr 0.85, AST 19, ALT 22, TC 133, HDL 41, LDL 69, PSA 4.2 EKG 903): AFIB (96 bpm), NSS04/09/20-Arrthmia of unclear originsEKG 10/17/2019: Probably ATRIAL [id number]/11/2020 EKG :Atrial premature beats Low voltage in chest leadsEKG,\02/13/19, A-fib mu02/13/2019: EKG : Probably atrial fibrillation Probably old inferior myocardial infarctionelectrocardiogram 10-24-2018 A-fIB03/15/18 TDM-Positive stress test. 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 Moderate LV dysfunction.EKG, 08/29/18: Prob A-Fib.EK02/28/18: A-Fib with RVRECHO 05/12/20:Atrial fibrillation,LV chamber is mildly dialted,LV wall thickness is normal,the estimated LVEF is 50-55%(normal),diastolic function is indeterminate due to atrial fibrillation,left atrium chamber is mildly dialted,the aortic valve is mildly calcified,there is mild tricuspid regurgitation,mild elevation of estimated RV systolic pressure,the estimated RV systolic pressure is 45 mmHg,the IVC is dialted and collapses >50% with inspiration (RAR 10 mmHg)mthere is no pericardial effusion present,atrial fibrillation.08/21/19 SLEEP STUDY: 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 Indications of cardiac dysrhythmia are recorded.07/29/2019 CTA: Normal LV function EF 44%. Sub-optimal study to do to underlying afib. LM short vessel, no disease. LAD 25-40% calcified lesion in mid segment. LCX no significant disease. RCA less than 25% calcified /07/19 TDM-Positive stress test. 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 Moderate LV dysfunction.Had nuclear stress testing on 03/17/11. Imaging had shown a 10-15% false negative rate and a small (5-10%) false positive rate. EKG portion was negative.bilateral venous doppler 03/16/11: negative for DVT.ECHO 09/16/15: normal LV size and function. EF > 70%. Trace MR. Trace ARCC: Palpitations [facility] 01/16/2023 14:50:43 07/11/19 24 text/htm l 07/11/23CC : Cardiac follow [id number] man with h/o paroxysmal atrial fibrillation, hypertension, hyperlipidemia, and prostate cancer presents today for 6 month follow-up with ECHO results. He was last seen in the clinic on 01/16/23, since then heHe denies ER visits and hospitalizations since he was last seen. Today reports: CC: pt states concerns with trying a new blood thinner medication beside the current medication, Pradaxa 150 mg capsule. Denies chest pain.Denies shortness of breath at rest. Has mild dyspnea on exertion.No orthopnea. No PNDs.Denies heart palpitations.Denies dizziness. Denies syncope or near syncope.No ankle or leg edema.No major bleeding events.No reported side effects from medications. Taking medications as prescribed with no missed doses.Denies snoring, daytime somnolence and AM headache.*Last LDL was 42 done on 02/03/22.Pt takes rosuvastatin 10 mg. *Had ECHO on 02/03/23 showed atrial fibrillation is present,LV chamber size is normal.the LVEF 55-60,diastolic function is indeterminate due to atrial fibrillation,left atrium chamber is mildly dilated, the aortic is mildly calcified, there is mild tricuspid regurgitation,mild elevation of estimated RV systolic pressure,there is mild pulmonic regurgitation,atrial fibrillation. Previously:He reporting occasional chest pain that last few seconds. He is active at home with Exercise bike He was on Amiodarone, was stopped due to hypothyroid *Had positive stress test 03/2018, had CTA 07/29/19 which showed Normal LV function EF 44%. Sub-optimal study to do to underlying afib. LM short vessel, no disease. LAD 25-40% calcified lesion in mid segment. LCX no significant disease. RCA less than 25% calcified lesion. Results from this visit, or from the past:07/18/19:Na 142,K 4.0,Cl 105,CO2 27,GLU 98,BUN 15,Cr 0.95.09/16/17: Na 142, K 4.4 ,CL 105 ,CO2 27, GLU 98, BUN 11 , CR 0.85,09/16/17: TC 133 ,TG 149 , HDL 41, LDL 69,07/18/17: Glu 96, Na 142, K 4.4, Cr 0.85, AST 19, ALT 22, TC 133, HDL 41, LDL 69, PSA 4.2 EKG 903): AFIB (96 bpm), NSS04/09/20-Arrthmia of unclear originsEKG 10/17/2019: Probably ATRIAL OXMZYMHPLJVK46/11/2020 EKG :Atrial premature beats Low voltage in chest leadsEKG,\02/13/19, A-fib mu02/13/2019: EKG : Probably atrial fibrillation Probably old inferior myocardial infarctionelectrocardiogram 10-24-2018 A-fIB03/15/18 TDM-Positive stress test. 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 Moderate LV dysfunction.EKG, 08/29/18: Prob A-Fib.EK02/28/18: A-Fib with RVRECHO 05/12/20:Atrial fibrillation,LV chamber is mildly dialted,LV wall thickness is normal,the estimated LVEF is 50-55%(normal),diastolic function is indeterminate due to atrial fibrillation,left atrium chamber is mildly dialted,the aortic valve is mildly calcified,there is mild tricuspid regurgitation,mild elevation of estimated RV systolic pressure,the estimated RV systolic pressure is 45 mmHg,the IVC is dialted and collapses >50% with inspiration (RAR 10 mmHg)mthere is no pericardial effusion present,atrial fibrillation.08/21/19 SLEEP STUDY: 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 Indications of cardiac dysrhythmia are recorded.07/29/2019 CTA: Normal LV function EF 44%. Sub-optimal study to do to underlying afib. LM short vessel, no disease. LAD 25-40% calcified lesion in mid segment. LCX no significant disease. RCA less than 25% calcified ifdmif57/07/19 TDM-Positive stress test. 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 Moderate LV dysfunction.Had nuclear stress testing on 03/17/11. Imaging had shown a 10-15% false negative rate and a small (5-10%) false positive rate. EKG portion was negative.bilateral venous doppler 03/16/11: negative for DVT.ECHO 09/16/15: normal LV size and function. EF > 70%. Trace MR. Trace ARCC: Palpitations Christy delvalle [place] [facility] 01/25/2024 08:37:36 01/27/20 24 text/htm l 01/27/24CC : Cardiac follow [id number] man with h/o paroxysmal atrial fibrillation, hypertension, hyperlipidemia, and prostate cancer presents today for 6 month follow-up. He was last seen in the clinic on 07/11/23, since then he has mild leg swellingHe denies ER visits and hospitalizations since he was last seen. Today reports:Denies chest pain.Denies shortness of breath at rest. Has mild dyspnea on exertion.No orthopnea. No PNDs.Denies heart palpitations.Denies dizziness. Denies syncope or near syncope.No major bleeding events.No reported side effects from medications. Taking medications as prescribed with no missed doses.Denies snoring, daytime somnolence and AM headache.*Last LDL was 42 done on 02/03/22.Pt takes rosuvastatin 10 mg. Previously:*Had ECHO on 02/03/23 showed atrial fibrillation is present,LV chamber size is normal.the LVEF 55-60,diastolic function is indeterminate due to atrial fibrillation,left atrium chamber is mildly dilated, the aortic is mildly calcified, there is mild tricuspid regurgitation,mild elevation of estimated RV systolic pressure,there is mild pulmonic regurgitation,atrial fibrillation. He reporting occasional chest pain that last few seconds. He is active at home with Exercise bike He was on Amiodarone, was stopped due to hypothyroid *Had positive stress test 03/2018, had CTA 07/29/19 which showed Normal LV function EF 44%. Sub-optimal study to do to underlying afib. LM short vessel, no disease. LAD 25-40% calcified lesion in mid segment. LCX no significant disease. RCA less than 25% calcified lesion. Results from this visit, or from the past:07/18/19:Na 142,K 4.0,Cl 105,CO2 27,GLU 98,BUN 15,Cr 0.95.09/16/17: Na 142, K 4.4 ,CL 105 ,CO2 27, GLU 98, BUN 11 , CR 0.85,09/16/17: TC 133 ,TG 149 , HDL 41, LDL 69,07/18/17: Glu 96, Na 142, K 4.4, Cr 0.85, AST 19, ALT 22, TC 133, HDL 41, LDL 69, PSA 4.2 EKG 903): AFIB (96 bpm), NSST3-Arrthmia of unclear originsEKG 10/17/2019: Probably ATRIAL [id number]/11/2020 EKG :Atrial premature beats Low voltage in chest leadsEKG,\02/13/19, A-fib mu02/13/2019: EKG : Probably atrial fibrillation Probably old inferior myocardial infarctionelectrocardiogram 10-24-2018 A-fIB03/15/18 TDM-Positive stress test. 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 Moderate LV dysfunction.EKG, 08/29/18: Prob A-Fib.EK02/28/18: A-Fib with RVRECHO 05/12/20:Atrial fibrillation,LV chamber is mildly dialted,LV wall thickness is normal,the estimated LVEF is 50-55%(normal),diastolic function is indeterminate due to atrial fibrillation,left atrium chamber is mildly dialted,the aortic valve is mildly calcified,there is mild tricuspid regurgitation,mild elevation of estimated RV systolic pressure,the estimated RV systolic pressure is 45 mmHg,the IVC is dialted and collapses >50% with inspiration (RAR 10 mmHg)mthere is no pericardial effusion present,atrial fibrillation.08/21/19 SLEEP STUDY: 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 Indications of cardiac dysrhythmia are recorded.07/29/2019 CTA: Normal LV function EF 44%. Sub-optimal study to do to underlying afib. LM short vessel, no disease. LAD 25-40% calcified lesion in mid segment. LCX no significant disease. RCA less than 25% calcified /07/19 TDM-Positive stress test. 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 Moderate LV dysfunction.Had nuclear stress testing on 03/17/11. Imaging had shown a 10-15% false negative rate and a small (5-10%) false positive rate. EKG portion was negative.bilateral venous doppler 03/16/11: negative for DVT.ECHO 09/16/15: normal LV size and function. EF > 70%. Trace MR. Trace ARCC: Palpitations Christy delvalle [facility] 07/23/2024 08:25:05 07/24/19 25 text/htm l 07/23/24CC : Cardiac follow up, dyspnea on [id number] man with h/o paroxysmal atrial fibrillation, hypertension, hyperlipidemia, and prostate cancer presents today for 6 month follow-up. He was last seen in the clinic on 01/27/24, since then he is doing wellHe denies ER visits and hospitalizations since he was last seen. Today reports:no ccDenies chest pain.Denies shortness of breath at rest. Has mild dyspnea on exertion.No orthopnea. No PNDs.Denies heart palpitations.Denies dizziness. Denies syncope or near syncope.No major bleeding events.No reported side effects from medications. Taking medications as prescribed with no missed doses.Denies snoring, daytime somnolence and AM headache.*Last LDL was 40 done on 02/08/23,Pt takes rosuvastatin 10 mg. Previously:*EKG 01/27/24: Atrial fibrillation with normal ventricular response, P; no analysis; QRS; normal, ST-T; normal, conclusion: abnormal ECG. *Had ECHO on 02/03/23 showed atrial fibrillation is present,LV chamber size is normal.the LVEF 55-60,diastolic function is indeterminate due to atrial fibrillation,left atrium chamber is mildly dilated, the aortic is mildly calcified, there is mild tricuspid regurgitation,mild elevation of estimated RV systolic pressure,there is mild pulmonic regurgitation,atrial fibrillation. *Had positive stress test 03/2018, had CTA 07/29/19 which showed Normal LV function EF 44%. Sub-optimal study to do to underlying afib. LM short vessel, no disease. LAD 25-40% calcified lesion in mid segment. LCX no significant disease. RCA less than 25% calcified lesion. Results from this visit, or from the past:07/18/19:Na 142,K 4.0,Cl 105,CO2 27,GLU 98,BUN 15,Cr 0.95.09/16/17: Na 142, K 4.4 ,CL 105 ,CO2 27, GLU 98, BUN 11 , CR 0.85,09/16/17: TC 133 ,TG 149 , HDL 41, LDL 69,07/18/17: Glu 96, Na 142, K 4.4, Cr 0.85, AST 19, ALT 22, TC 133, HDL 41, LDL 69, PSA 4.2 EKG 9004/07/21): AFIB (96 bpm), NSST3-Arrthmia of unclear originsEKG 10/17/2019: Probably ATRIAL FENIGSGEINEZ14/11/2020 EKG :Atrial premature beats Low voltage in chest leadsEKG,\02/13/19, A-fib mu02/13/2019: EKG : Probably atrial fibrillation Probably old inferior myocardial infarctionelectrocardiogram 10-24-2018 A-fIB03/15/18 TDM-Positive stress test. 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 Moderate LV dysfunction.EKG, 08/29/18: Prob A-Fib.EK02/28/18: A-Fib with RVRECHO 05/12/20:Atrial fibrillation,LV chamber is mildly dialted,LV wall thickness is normal,the estimated LVEF is 50-55%(normal),diastolic function is indeterminate due to atrial fibrillation,left atrium chamber is mildly dialted,the aortic valve is mildly calcified,there is mild tricuspid regurgitation,mild elevation of estimated RV systolic pressure,the estimated RV systolic pressure is 45 mmHg,the IVC is dialted and collapses >50% with inspiration (RAR 10 mmHg)mthere is no pericardial effusion present,atrial fibrillation.08/21/19 SLEEP STUDY: 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 Indications of cardiac dysrhythmia are recorded.07/29/2019 CTA: Normal LV function EF 44%. Sub-optimal study to do to underlying afib. LM short vessel, no disease. LAD 25-40% calcified lesion in mid segment. LCX no significant disease. RCA less than 25% calcified yljqkd67/07/19 TDM-Positive stress test. 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 Moderate LV dysfunction.Had nuclear stress testing on 03/17/11. Imaging had shown a 10-15% false negative rate and a small (5-10%) false positive rate. EKG portion was negative.bilateral venous doppler 03/16/11: negative for DVT.ECHO 09/16/15: normal LV size and function. EF > 70%. Trace MR. Trace ARC: Palpitations Owen Weeks MD [address] [facility], [place], [address], [place] - [facility] 07/23/2024 16:04:19
== END 2024-11-26 14:52 | disposition home or self-care (01) ==
PROVIDERS: PCP Physician Assistant; Visit Provider Internal Medicine
DX: M81.0 Age-related osteoporosis without current pathological fracture (principal)
CPT/HCPCS: 77080